=== PATIENT | female | born 1980 | race Caucasian/White ===

== ENCOUNTER 2017-02-04 15:50 | Emergency (ER) | payer MEDICAID ==
[2017-02-04] MEDS ORDERED: Sodium Chloride 0.9% 10 ML Syringe FLUSH PRN (17:08)
--- NOTE | 2017-02-04 17:17 | EDM.PDOC ---
ED HPI LOWER BACK PAIN/INJURY - General Chief Complaint: Back Pain or Injury Stated Complaint: Low back pain Time Seen by Provider: 02/04/17 16:45 Source of Information: Reports: Patient, RN notes reviewed History Limitations: Reports: No limitations - History of Present Illness INITIAL COMMENTS - FREE TEXT/NARRATIVE: 36 year old female presents to the ED today with low back pain radiating down her left leg. This is an ongoing problem for her but has been worse over this past week. In the past, she's been treated with steroids, hydrocodone, and muscle relaxers. She had no recent injury or fall. No flank pain, urinary symptoms, hematuria, or loss of bowel or bladder function. No numbness or tingling. She is ambulating without difficulty. The pain is better with movement. She has been struggling with epigastic discomfort and is scheduled for an EGD. She has been told to avoid NSAIDs for this reason. - Related Data Allergies/ADRs: Allergies Allergy/AdvReac Type Severity Reaction Status Date / Time Penicillins Allergy Hives Verified 02/04/17 16:16 succinylcholine Allergy Anaphylactic Verified 02/04/17 16:16 Shock Home Meds: Home Meds Acetaminophen/HYDROcodone [[place] 325-5 MG] 1 tab PO Q6H PRN #10 tablet 02/04/17 [Rx] Orphenadrine [Norflex] 100 mg PO BID #15 tab.er 02/04/17 [Rx] Pantoprazole Sodium [Protonix] 40 mg PO DAILY 02/04/17 [History] Past Medical History Musculoskeletal History: Reports: Back pain, chronic - Past Surgical History HEENT Surgical History: Reports: Adenoidectomy, Tonsillectomy Neurological Surgical History: Reports: Lumbar spine Social & Family History - Family History Endocrine/Metabolic: Reports: Diabetes, type II - Tobacco Use Smoking Status *Q: Current Every Day Smoker Years of Tobacco use: 22 Packs/Tins Daily: 1 - Caffeine Use Caffeine Use: Reports: Coffee, Soda - Recreational Drug Use Recreational Drug Use: No ED ROS GENERAL - Review of Systems Review Of Systems: See Below Constitutional: Reports: no symptoms. Denies: fever, chills Respiratory: Reports: No Symptoms. Denies: Shortness of Breath Cardiovascular: Reports: No symptoms. Denies: Chest pain GI/Abdominal: Reports: No symptoms. Denies: Abdominal pain, Nausea, Vomiting : Reports: no symptoms. Denies: dysuria, flank pain, frequency, hematuria Musculoskeletal: Reports: back pain Skin: Reports: no symptoms Neurological: Reports: No Symptoms. Denies: Numbness, Tingling, Difficulty Walking, Weakness ED EXAM,LOWER BACK PAIN/INJURY - Physical Exam Exam: See Below Exam Limited By: No limitations General Appearance: alert, WD/WN, moderate distress Respiratory/Chest: no respiratory distress, lungs clear, normal breath sounds Cardiovascular: regular rate, rhythm GI/Abdominal: normal bowel sounds, soft, non tender Back Exam: normal inspection, full range of motion, muscle spasm (low back ), paraspinal tenderness (left lower back ), other (I am able to exacerbate the patient's symptoms with palpation of the left SI joint. ). No: CVA tenderness ( L), CVA tenderness (R), vertebral tenderness Extremities: normal inspection, normal range of motion Neurological: alert, normal mood/affect, normal dorsiflexion, normal plantar flexion, normal gait, no motor/sensory deficits, oriented x 3 Skin Exam: Warm, Dry, Intact Course - Vital Signs Last Recorded V/S: Last Vital Signs Temp 96.6 F 02/04/17 16:08 Pulse Resp 16 02/04/17 16:08 BP 147/99 H 02/04/17 16:08 Pulse Ox 97 02/04/17 16:08 - Orders/Labs/Meds Orders: Active Orders 24 hr Category Date Time Status Peripheral IV Care [RC] . DIRECTED Care 02/04/17 17:09 Active Sodium Chloride 0.9% [Saline Flush] Med 02/04/17 17:08 Active 10 ml FLUSH ASDIRECTED PRN Peripheral IV Insertion Adult [OM.PC] Stat Oth 02/04/17 17:09 Ordered Medication Orders Sodium Chloride (Saline Flush) 10 ml FLUSH ASDIRECTED PRN PRN Reason: Keep Vein Open Meds: Medications Generic Name Dose Route Start Last Admin Trade Name Freq PRN Reason Stop Dose Admin Sodium Chloride 10 ml 02/04/17 17:08 Saline Flush FLUSH ASDIRECTED PRN Keep Vein Open - Re-Assessments/Exams Free Text/Narrative Re-Assessment/Exam: I offered the patient IM injections and also recommended we check her urine. She declined and said she needs to get to work. She would prefer prescriptions and discharge if possible. She has no CVA tenderness or urinary symptoms. Her exam is consistent with musculoskeletal/sciatica etiology. Due to her upper GI symptoms, I am not going to prescribe NSAIDs or prednisone. Will provide prescription for Norflex and Ridge. She is to f/u with her PCP for further evaluation and management. Educated on return precautions. Discharge instructions as documented. Departure - Departure Time of Disposition: 17:15 Disposition: Home, Self-Care 01 Condition: good Clinical Impression: Lumbago with sciatica, left side Qualifiers: Chronicity: acute Back pain laterality: left Qualified Code(s): M54.42 - Lumbago with sciatica, left side Prescriptions: Acetaminophen/HYDROcodone [Ridge 325-5 MG] 1 tab PO Q6H PRN #10 tablet PRN Reason: Pain Orphenadrine [Norflex] 100 mg PO BID #15 tab.er Instructions: Sciatica, [id number] Referrals: Yak[facility] Gaitan [facility] [Primary Care Provider] - Forms: ED Department Discharge Additional Instructions: Orphandrine 100mg twice a day as needed for muscle spasms Hydrocodone/apap 5/325, 1 tab every 6 hours as needed for pain No driving for at least 8 hours after taking Hydrocodone Follow-up with Yakelin Gaitan NP next week Return to ER with worsening of symptoms, fever, chills, urinary symptoms, or loss of bowel or bladder function.
[2017-02-04 18:22] VITALS: BP 133/74
== END 2017-02-04 17:25 | disposition home or self-care (01) ==
LOC: JD.ED 15:50
DX: M54.42 Lumbago with sciatica, left side (principal); F17.210 Nicotine dependence, cigarettes, uncomplicated; Z98.890 Other specified postprocedural states; Z88.0 Allergy status to penicillin; Z88.8 Allergy status to other drugs, medicaments and biological substances; Z79.899 Other long term (current) drug therapy
CPT/HCPCS: 99283

== ENCOUNTER 2017-02-24 13:02 | Day surgery (SDC) | payer MEDICAID ==
--- NOTE | 2017-02-24 06:03 | PCM.SN ---
- Free Text/Narrative Note: Patient did follow up with cardiology for reported chest pain with exertion. Did obtain approval for EGD from Dr. Nieto. Lexiscan stress test recommended by cardiology prior to proceeding with gallbladder surgery. EKG 01/2017: EKG Severity - NORMAL ECG - EKG Impression Sinus rhythm Echo 01/2017: Conclusion: 1. Normal left ventricular size and wall thicknesses, with normal systolic and diastolic function. 2. Left ventricular ejection fraction is 60 to 65%. 3. Normal aortic valve, without any evidence of aortic stenosis or insufficiency. Stress test 01/2017: Indeterminate graded exercise test. Apparent cardiovascular deconditioning. No abnormality on Cardiolite portion. Jesi Smith, TAILER OFF
--- NOTE | 2017-02-24 12:11 | PCM.PREANE ---
Preanesthetic Assessment - Anesthesia/Transfusion/Family Hx Anesthesia History: Prior Anesthesia Reaction Type of Anesthesia Reaction: Other (see below) (cardiac arrest with succinuylcholine noted per h/p2) Family History of Anesthesia Reaction: No Transfusion History: No Prior Transfusion(s) Intubation History: Unknown - Review of Systems General: No Symptoms Pulmonary: No Symptoms (smoker 1 pack/day times 22 years.) Cardiovascular: No Symptoms Gastrointestinal: No symptoms (GERD) Neurological: No Symptoms (acute lower back pain), Numbness (hands and feet fall asleep easily) Other: Reports: Neck Pain (FROM noted) - Physical Assessment NPO Status Date: 02/23/17 NPO Status Time: 00:00 Pulse: 84 O2 Sat by Pulse Oximetry: 96 Respiratory Rate: 16 Blood Pressure: 132/80 Temperature: 96.3 C ASA Class: 2 Mental Status: Alert & Oriented x3 Airway Class: Mallampati = 2 Dentition: Reports: Normal Dentition Thyro-Mental Finger Breadths: 2 Mouth Opening Finger Breadths: 3 ROM/Head Extension: Full Lungs: Clear to auscultation, Normal respiratory effort Cardiovascular: Regular Rate, Regular Rhythm - Lab Values: Lab values noted and reviewed and within normal limits. - Imaging/EKG Impressions: EKG: sinus rhythm - Allergies Allergies/Adverse Reactions: Allergies Allergy/AdvReac Type Severity Reaction Status Date / Time cocaine Allergy Cannot Verified 02/23/17 14:54 Remember Penicillins Allergy Hives Verified 02/23/17 14:54 succinylcholine Allergy Cardiac Verified 02/23/17 14:54 Arrest - Anesthesia Plan Pre-Op Medication Ordered: None - Acknowledgements Anesthesia Type Planned: MAC Pt an Appropriate Candidate for the Planned Anesthesia: Yes Alternatives and Risks of Anesthesia Discussed w Pt/Guardian: Yes Pt/Guardian Understands and Agrees with Anesthesia Plan: Yes PreAnesthesia Questionnaire HEENT History: Reports: None Cardiovascular History: Reports: None, Other (see below) Other Cardiovascular History: exertional chest pain Respiratory History: Reports: None, SOB (pt states SOB with exertion) Gastrointestinal History: Reports: GERD, Other (see below) Other Gastrointestinal History: gallstones, reflux, nausea, diarrhea, RUQ and LUQ abdominal pain Genitourinary History: Reports: None 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: Reports: Endometriosis, Polycystic Ovaries, Other (see below) Other OB/BYN History: amenorrhea Musculoskeletal History: Reports: Back pain, chronic (pt has had back surgery), Other (see below) Other Musculoskeletal History: neck apin, lumar disc herniation at L4-L5 Neurological History: Reports: None Psychiatric History: Reports: None Endocrine/Metabolic History: Reports: Obesity/BMI 30+ Hematologic History: Reports: None Immunologic History: Reports: None Oncologic (Cancer) History: Reports: None Dermatologic History: Other Dermatologic History: acne vulgaris, hidrodenitis, infected skin lesion - Past Surgical History Head Surgeries/Procedures: Reports: None HEENT Surgical History: Reports: Tonsillectomy, Other (see below) Other HEENT Surgeries/Procedures: tympanoplasty Cardiovascular Surgical History: Reports: None Respiratory Surgical History: Reports: None GI Surgical History: Reports: None Female Surgical History: Reports: None, Other (see below) (laparoscopy) Male Surgical History: Reports: None Endocrine Surgical History: Reports: None Neurological Surgical History: Reports: Lumbar spine Musculoskeletal Surgical History: Reports: Other (see below) Other Musculoskeletal Surgeries/Procedures:: laminectomy and discectomy Oncologic Surgical History: Reports: None Dermatological Surgical History: Reports: None - HOME MEDS Home Medications: Home Meds Acetaminophen/HYDROcodone [[place] 325-5 MG] 1 tab PO Q6H PRN #10 tablet 02/04/17 [Rx] Orphenadrine [Norflex] 100 mg PO BID #15 tab.er 02/04/17 [Rx] Pantoprazole Sodium [Protonix] 40 mg PO DAILY 02/04/17 [History] Vitamin C/Biotin [Hair, Skin and Nails Gummies] 1 tab PO DAILY 02/23/17 [History ] - CURRENT (IN HOUSE) MEDS Current Meds: Current Medications Lactated Ringer's (Ringers, Lactated) 1,000 mls @ 125 mls/hr IV ASDIRECTED RUBIA Lidocaine/Sodium Bicarbonate (Buffered Lidocaine 1% In Ns 8.4%) 0.25 ml IV ONETIME PRN PRN Reason: Prior to IV Start Sodium Chloride (Saline Flush) 10 ml FLUSH ASDIRECTED PRN PRN Reason: Keep Vein Open
[~2017-02-24 13:02] MED LIST: Lactated Ringers 1,000 ML IV SCH; Lidocaine 1%/Sod Bicarbonate in NS 8.4% 1 ML Syringe IV PRN; Sodium Chloride 0.9% 10 ML Syringe FLUSH PRN
[2017-02-24] MEDS ORDERED: Lidocaine 1% 4 ML ONE (14:05)
[2017-02-24] MEDS ORDERED: Lidocaine 1% 2 ML ONE (14:05)
[2017-02-24] MEDS ORDERED: fentaNYL 100 MCG/2 ML SDV ONE (14:05)
[2017-02-24] MEDS ORDERED: Propofol 200 MG/20 ML SDV ONE (14:06)
--- NOTE | 2017-02-24 14:48 | PCM.OPNOTE ---
- General Post-Op/Procedure Note Date of Surgery/Procedure: 02/24/17 Operative Procedure(s): Diagnostic EGD with cold forceps biopsy Pre Op Diagnosis: Reflux, heartburn, nausea, right upper quadrant and epigastric tenderness on exam, history of left upper quadrant pain Post-Op Diagnosis: Mild esophagitis Anesthesia Technique: MAC Primary Surgeon: Kendy Landeros Anesthesia Provider: Darshana Zazueta Pathology: 1. Small bowel biopsy 2. Antral biopsy 3. Distal esophageal biopsy Fluid Replacement, Intraop: 300 (mL crystalloid ) EBL in mLs: 1 Complications: None Condition: Good Free Text/Narrative:: INDICATION FOR PROCEDURE: The patient is a 36-year-old woman who is referred to me by MARY Mast for evaluation of heartburn, reflux, epigastric and upper abdominal pain. She also have a history of gallstones. EGD had been discussed with the patient and risks of the associated procedure. The patient found these risks acceptable and agreed to proceed. DESCRIPTION OF PROCEDURE: The patient was taken to the operating room and placed in the left lateral decubitus position. After induction of adequate sedation, a bite block was placed. A standard Olympus gastroscope was inserted into the oropharynx and guided down the esophagus without difficulty. The gastroesophageal junction was appreciated at 39 cm from the teeth. There was no evidence of stricture or esophageal ulcerations. The scope was advanced into the stomach, and there was liquid in the stomach, but no solid food. The scope was passed into the proximal jejunum and the duodenum which were unremarkable. There were no petechiae or ulcerations. The proximal jejunum was grossly normal in appearance. Multiple cold forceps biopsies were obtained of the proximal jejunum and duodenum. The scope was withdrawn into the antrum, and additional cold forceps biopsies were obtained. The remainder of the gastric body was examined, and there were no additional findings. The scope was retroflexed, and there was no evidence of hiatal hernia. The scope was straightened and withdrawn to the GE junction. Additional cold forceps biopsies were obtained of the distal esophagus. The scope was withdrawn through the remainder of the esophagus and no further abnormalities were noted. The posterior oropharynx was grossly normal in appearance. The scope was then fully withdrawn. The patient was awakened from sedation and transferred to the recovery room in stable condition having tolerated the procedure well. POSTOPERATIVE PLAN: I discussed with the patient my intraoperative findings and postoperative recommendations. The patient will follow up in approximately 7-10 days to discuss their pathology and how their symptoms are progressing. The patient is to continue Protonix 40mg daily. I have asked the patient to follow a GERD\gastritis diet. The patient is to call with any worsening of symptoms or questions prior to appointment.
--- NOTE | 2017-02-24 14:48 | PCM48HPAN ---
Post Anesthesia Note - EVALUATION WITHIN 48HRS OF ANESTHETIC Vital Signs in Normal Range: Yes Patient Participated in Evaluation: Yes Respiratory Function Stable: Yes Airway Patent: Yes Cardiovascular Function Stable: Yes Hydration Status Stable: Yes Pain Control Satisfactory: Yes Nausea and Vomiting Control Satisfactory: Yes Mental Status Recovered: Yes
[2017-02-24 15:42] VITALS: BP 124/69
== END 2017-02-24 15:35 | disposition home or self-care (01) ==
LOC: JD.SDS 13:02
PROVIDERS: ATTEND Surgery
PROC: 0DBA8ZX Excision of Jejunum, Via Natural or Artificial Opening Endoscopic, Diagnostic (ICD-10-PCS; principal; 2017-02-24)
PROC: 0DB88ZX Excision of Small Intestine, Via Natural or Artificial Opening Endoscopic, Diagnostic (ICD-10-PCS; 2017-02-24)
DX: K21.0 Gastro-esophageal reflux disease with esophagitis (principal); R10.11 Right upper quadrant pain
CPT/HCPCS: 43239; 81025; 88305; J3010; J7120; J2704

== ENCOUNTER 2017-05-24 22:44 | Emergency (ER) | payer MEDICAID ==
[2017-05-24 22:54] VITALS: BP 143/82
--- NOTE | 2017-05-24 23:26 | EDM.PDOC ---
ED HPI GENERAL MEDICAL PROBLEM - General Chief Complaint: Upper Extremity Injury/Pain Stated Complaint: INJURED RT HAND Time Seen by Provider: 05/24/17 23:25 - History of Present Illness INITIAL COMMENTS - FREE TEXT/NARRATIVE: 37-year-old female presents emergency room with a right forearm and hand pain. This started this evening around 6:00 after arm wrestling with her . Pain is progressively gotten worse over time she had developed intense pain during the arm wrestling and stopped at that point. The pain seems to be worse in the midportion of her hand however she has pain in her forearm also. Right Hand Pain Score (Numeric/FACES): 10 - Related Data Allergies Allergy/AdvReac Type Severity Reaction Status Date / Time cocaine Allergy Cannot Verified 05/24/17 22:54 Remember Penicillins Allergy Hives Verified 05/24/17 22:54 succinylcholine Allergy Cardiac Verified 05/24/17 22:54 Arrest Home Meds: Home Meds Pantoprazole Sodium [Protonix] 40 mg PO DAILY 02/04/17 [History] Vitamin C/Biotin [Hair, Skin and Nails Gummies] 1 tab PO DAILY 02/23/17 [History ] Past Medical History HEENT History: Reports: None Cardiovascular History: Reports: None, Other (See Below) Other Cardiovascular History: exertional chest pain Respiratory History: Reports: None, SOB Gastrointestinal History: Reports: GERD, Other (See Below) Other Gastrointestinal History: gallstones, reflux, nausea, diarrhea, RUQ and LUQ abdominal pain Genitourinary History: Reports: None 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: Reports: Endometriosis, Polycystic Ovaries, Other (See Below) Other OB/BYN History: amenorrhea Musculoskeletal History: Reports: Back Pain, Chronic, Other (See Below) Other Musculoskeletal History: neck apin, lumar disc herniation at L4-L5 Neurological History: Reports: None Psychiatric History: Reports: None Endocrine/Metabolic History: Reports: Obesity/BMI 30+ Hematologic History: Reports: None Immunologic History: Reports: None Oncologic (Cancer) History: Reports: None Other Dermatologic History: acne vulgaris, hidrodenitis, infected skin lesion - Past Surgical History Head Surgeries/Procedures: Reports: None HEENT Surgical History: Reports: Tonsillectomy, Other (See Below) Respiratory Surgical History: Reports: None Female Surgical History: Reports: None, Other (See Below) Endocrine Surgical History: Reports: None Neurological Surgical History: Reports: Lumbar Spine Musculoskeletal Surgical History: Reports: Other (See Below) Oncologic Surgical History: Reports: None Dermatological Surgical History: Reports: None Social & Family History - Family History Endocrine/Metabolic: Reports: Diabetes, type II - Tobacco Use Smoking Status *Q: Unknown Ever Smoked Years of Tobacco use: 22 Packs/Tins Daily: 1 - Caffeine Use Caffeine Use: Reports: Coffee, Soda - Recreational Drug Use Recreational Drug Use: No Review of Systems - Review of Systems Review Of Systems: See Below Constitutional: Reports: No Symptoms Respiratory: Reports: No Symptoms Cardiovascular: Reports: No Symptoms GI/Abdominal: Reports: No Symptoms ED EXAM, GENERAL - Physical Exam Exam: See Below Exam Limited By: No Limitations General Appearance: Alert, No Apparent Distress Respiratory/Chest: No Respiratory Distress, Lungs Clear, Normal Breath Sounds Cardiovascular: Regular Rate, Rhythm, No Edema, No Murmur Extremities: Other (Examination of the right arm reveals tenderness over the hand this is somewhat hard to move because of tenderness I cannot adequately assess range of motion at the wrist and digits supination pronation somewhat limited by discomfort range of motion of the elbows okay) Course - Vital Signs Last Recorded V/S: Last Vital Signs Temp 36.7 C 05/24/17 22:51 Pulse 82 05/24/17 22:51 Resp 18 05/24/17 22:51 BP 143/82 H 05/24/17 22:51 Pulse Ox 98 05/24/17 22:51 - Orders/Labs/Meds Orders: Active Orders 24 hr Category Date Time Status Forearm 2V Rt [CR] Stat Exams 05/24/17 23:34 Taken Hand Comp Min 3V Rt [CR] Stat Exams 05/24/17 22:58 Taken - Re-Assessments/Exams Free Text/Narrative Re-Assessment/Exam: 05/24/17 23:39 X-ray of the hand is unrevealing forearm pending forearm x-rays unrevealing patient had a volar splint applied and this is helping with the discomfort. We will discharge home at this time Departure - Departure Time of Disposition: 00:53 Disposition: Home, Self-Care 01 Clinical Impression: Sprain of right hand, Sprain of right wrist - Discharge Information Forms: ED Department Discharge Additional Instructions: Return to the emergency room with any questions problems or worsening symptoms. Follow up in the clinic with your regular provider on for recheck. Tylenol or Motrin as needed for discomfort. Keep your hand elevated as much as she can tolerate ice your wrist for 15-20 minutes every 2 hours while awake. - My Orders Last 24 Hours: My Active Orders 05/24/17 22:58 Hand Comp Min 3V Rt [CR] Stat 05/24/17 23:34 Forearm 2V Rt [CR] Stat - Assessment/Plan Last 24 Hours: My Active Orders 05/24/17 22:58 Hand Comp Min 3V Rt [CR] Stat 05/24/17 23:34 Forearm 2V Rt [CR] Stat
--- NOTE | 2017-05-25 07:37 | CR ---
Right forearm: Two views of the right forearm were obtained. Soft tissue swelling is seen within the forearm. No fracture or other bony abnormality is seen. Impression: 1. Soft tissue swelling. No bony abnormality is identified on right forearm study. Diagnostic code #2
--- NOTE | 2017-05-25 07:37 | CR ---
Right hand: Four views of the right hand were obtained. Comparison: No previous hand study. Joint spaces are preserved. Soft tissue swelling appears to be present mostly within the second digit. No acute fracture, dislocation or other bony abnormality is seen. Impression: 1. Soft tissue swelling appears to be present mostly within the right second digit. 2. No acute bony abnormality is appreciated. Diagnostic code #2
== END 2017-05-25 01:03 | disposition home or self-care (01) ==
LOC: JD.ED 22:44
DX: S63.91XA Sprain of unspecified part of right wrist and hand, initial encounter (principal); K21.9 Gastro-esophageal reflux disease without esophagitis; E66.9 Obesity, unspecified; Z88.0 Allergy status to penicillin; Z88.5 Allergy status to narcotic agent; Z79.899 Other long term (current) drug therapy; Z98.890 Other specified postprocedural states; X58.XXXA Exposure to other specified factors, initial encounter
CPT/HCPCS: 29125; 73090-26-RT; 73090-RT; 73130-26-RT; 73130-RT; 99283; 99283-25

== ENCOUNTER 2017-07-09 01:41 | Emergency (ER) | payer MEDICAID ==
[2017-07-09 01:56] VITALS: BP 148/97
[2017-07-09] MEDS ORDERED: Albuterol 6.7 GM Inhaler INH ONE (02:00)
--- NOTE | 2017-07-09 02:04 | EDM.PDOC ---
ED HPI GENERAL MEDICAL PROBLEM - General Chief Complaint: Respiratory Problem Stated Complaint: SOB COUGH Time Seen by Provider: 07/09/17 01:56 - History of Present Illness INITIAL COMMENTS - FREE TEXT/NARRATIVE: 37-year-old female presents emergency room with a worsening cough. Patient was seen in the clinic on Wednesday diagnosed with bronchitis started on doxycycline. She thought she had an albuterol inhaler at home but apparently does not. Now the cough is keeping her up at night. She's had this cough for about 10 days and is progressively getting worse the cough is becoming more productive with clear to off-colored sputum. She denies any fevers or chills Past medical history significant for polycystic ovarian disease denies . Chest Pain Score (Numeric/FACES): 5 - Related Data Allergies Allergy/AdvReac Type Severity Reaction Status Date / Time cocaine Allergy Cannot Verified 07/09/17 01:56 Remember Penicillins Allergy Hives Verified 07/09/17 01:56 succinylcholine Allergy Cardiac Verified 07/09/17 01:56 Arrest Home Meds: Home Meds Pantoprazole Sodium [Protonix] 40 mg PO DAILY 02/04/17 [History] Vitamin C/Biotin [Hair, Skin and Nails Gummies] 1 tab PO DAILY 02/23/17 [History ] predniSONE [predniSONE] 20 mg PO DAILY 07/09/17 [History] Past Medical History HEENT History: Reports: None Cardiovascular History: Reports: None, Other (See Below) Other Cardiovascular History: exertional chest pain Respiratory History: Reports: None, SOB Gastrointestinal History: Reports: GERD, Other (See Below) Other Gastrointestinal History: gallstones, reflux, nausea, diarrhea, RUQ and LUQ abdominal pain Genitourinary History: Reports: None 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: Reports: Endometriosis, Polycystic Ovaries, Other (See Below) Other OB/BYN History: amenorrhea Musculoskeletal History: Reports: Back Pain, Chronic, Other (See Below) Other Musculoskeletal History: neck apin, lumar disc herniation at L4-L5 Neurological History: Reports: None Psychiatric History: Reports: None Endocrine/Metabolic History: Reports: Obesity/BMI 30+ Hematologic History: Reports: None Immunologic History: Reports: None Oncologic (Cancer) History: Reports: None Other Dermatologic History: acne vulgaris, hidrodenitis, infected skin lesion - Past Surgical History Head Surgeries/Procedures: Reports: None HEENT Surgical History: Reports: Tonsillectomy, Other (See Below) Respiratory Surgical History: Reports: None Female Surgical History: Reports: None, Other (See Below) Endocrine Surgical History: Reports: None Neurological Surgical History: Reports: Lumbar Spine Musculoskeletal Surgical History: Reports: Other (See Below) Oncologic Surgical History: Reports: None Dermatological Surgical History: Reports: None Social & Family History - Family History Endocrine/Metabolic: Reports: Diabetes, type II - Tobacco Use Smoking Status *Q: Unknown Ever Smoked Years of Tobacco use: 22 Packs/Tins Daily: 1 - Caffeine Use Caffeine Use: Reports: Coffee, Soda - Recreational Drug Use Recreational Drug Use: No ED ROS GENERAL - Review of Systems Review Of Systems: See Below Constitutional: Denies: Fever, Chills HEENT: Reports: No Symptoms Respiratory: Reports: Cough, Sputum. Denies: Wheezing Cardiovascular: Reports: No Symptoms. Denies: Chest Pain GI/Abdominal: Reports: No Symptoms : Reports: No Symptoms Neurological: Reports: No Symptoms ED EXAM, GENERAL - Physical Exam Exam: See Below Exam Limited By: No Limitations General Appearance: Alert, No Apparent Distress, Other (She has a frequent cough ) Ears: Normal External Exam, Normal Canal, Normal TMs Nose: Normal Inspection, Normal Mucosa, Clear Rhinorrhea Throat/Mouth: Normal Inspection, Normal Lips, Normal Teeth, Normal Gums, Normal Oropharynx Head: Atraumatic, Normocephalic Neck: Normal Inspection, Supple, Non-Tender, Full Range of Motion. No: Lymphadenopathy (L), Lymphadenopathy (R) Respiratory/Chest: No Respiratory Distress, Lungs Clear, Normal Breath Sounds Cardiovascular: Regular Rate, Rhythm, No Edema, No Murmur Course - Vital Signs Last Recorded V/S: Last Vital Signs Temp 36.4 C 07/09/17 01:53 Pulse 99 07/09/17 01:53 Resp 18 07/09/17 01:53 BP 148/97 H 07/09/17 01:53 Pulse Ox 92 L 07/09/17 02:22 - Orders/Labs/Meds Orders: Active Orders 24 hr Category Date Time Status Chest 2V [CR] Stat Exams 07/09/17 02:01 Taken Meds: Medications Discontinued Medications Generic Name Dose Route Start Last Admin Trade Name Freq PRN Reason Stop Dose Admin Albuterol 6.5 gm 07/09/17 02:00 07/09/17 02:21 Proventil Hfa INH 07/09/17 02:01 2 puff ONETIME ONE Administration - Re-Assessments/Exams Free Text/Narrative Re-Assessment/Exam: 07/09/17 02:15 We'll start the patient on albuterol MDI see if this helps her O2 saturation is 89% we'll check a chest x-ray. 07/09/17 02:53 O2 saturation 93% chest x-ray no obvious infiltrate questionable area in her left lower lobe. Patient was started on albuterol MDI this helps significantly. Departure - Departure Time of Disposition: 02:53 Disposition: Home, Self-Care 01 Clinical Impression: Acute bronchitis - Discharge Information Referrals: Yakelin Gaitan, ELECT[employer] MICROSCOPIST [Primary Care Provider] - Forms: ED Department Discharge Additional Instructions: Return to the emergency room with any questions problems worsening symptoms. Use the albuterol 2 puffs every 4 hours while awake. Follow-up in the clinic tomorrow if needed. - My Orders Last 24 Hours: My Active Orders 07/09/17 02:01 Chest 2V [CR] Stat - Assessment/Plan Last 24 Hours: My Active Orders 07/09/17 02:01 Chest 2V [CR] Stat
--- NOTE | 2017-07-09 13:17 | CR ---
Chest: Two views of the chest were obtained. Comparison: No prior chest x-ray. Perihilar markings are slightly increased. Slight focal density is seen of the left cardiac apex. Lungs otherwise are clear. Heart size and mediastinum are within normal limits. Bony structures are unremarkable. Impression: 1. Perihilar markings are slightly increased which is felt to be compatible with bronchitis. Possible minimal area of pneumonia versus atelectasis of the left cardiac apex. 2. Chest x-ray is otherwise unremarkable. Diagnostic code #3
== END 2017-07-09 03:13 | disposition home or self-care (01) ==
LOC: JD.ED 01:41
DX: J20.9 Acute bronchitis, unspecified (principal); K21.9 Gastro-esophageal reflux disease without esophagitis; E66.9 Obesity, unspecified; Z88.5 Allergy status to narcotic agent; Z88.0 Allergy status to penicillin; Z88.2 Allergy status to sulfonamides; Z79.899 Other long term (current) drug therapy; Z68.42 Body mass index [BMI] 45.0-49.9, adult
CPT/HCPCS: 71020; 94640; 99284; A9270; 99283

== ENCOUNTER 2017-07-10 11:35 | Inpatient (IN) | payer MEDICAID ==
[2017-07-10] MEDS ORDERED: Albuterol 0.083% 2.5 MG/3 ML Neb Soln NEB ONE (11:48)
[2017-07-10] MEDS ORDERED: Albuterol/Ipratropium 3.0-0.5 MG/3 ML Neb Soln NEB ONE ×2 (11:48→12:52)
--- NOTE | 2017-07-10 12:21 | EDM.PDOC ---
ED HPI GENERAL MEDICAL PROBLEM - General Chief Complaint: Respiratory Problem Stated Complaint: COUGH/SOB Time Seen by Provider: 07/10/17 11:52 Source of Information: Reports: Patient History Limitations: Reports: No Limitations - History of Present Illness INITIAL COMMENTS - FREE TEXT/NARRATIVE: Patient is a 37-year-old female who presents to the ED complaining of productive cough, wheezing, and shortness of breath. Patient was recently diagnosed with bronchitis this past Wednesday and started on doxycycline. She was evaluated last night in the ED and a chest x-ray obtained with no obvious infiltrate present. Questional area in the left lower lobe that maybe early onset of pneumonia. O2 sats at that time were 93%. She had received albuterol with MDI which improved her symptoms drastically. On returning home patient's been utilizing albuterol inhaler every hour with minimal improvements. She is taking prednisone 20 mg daily since the . Symptoms have been present for the past 10 days. It progressed to got worse. She is denying any sinus congestion, runny nose, sore throat, fever/chills, chest pain, abdominal pain, pain with urination, or additional complaints. There's been no rash. No recent sick exposures. She does have a history of admission to the hospital for pneumonia. Smokes 1 ppd.Does not take BCP. Denies being . Treatments SOCIAL AND HUMAN SERVICES ASSISTANT: Reports: Other (see below) Other Treatments SOCIAL AND HUMAN SERVICES ASSISTANT: albuterol inhaler. Back Pain Score (Numeric/FACES): 3 Headache Pain Score (Numeric/FACES): 0 - Related Data Allergies Allergy/AdvReac Type Severity Reaction Status Date / Time cocaine Allergy Cannot Verified 07/10/17 14:33 Remember Penicillins Allergy Hives Verified 07/10/17 14:33 succinylcholine Allergy Cardiac Verified 07/10/17 14:33 Arrest Home Meds: Home Meds Pantoprazole Sodium [Protonix] 40 mg PO DAILY 02/04/17 [History] Vitamin C/Biotin [Hair, Skin and Nails Gummies] 1 tab PO DAILY 02/23/17 [History ] predniSONE [predniSONE] 20 mg PO DAILY 07/09/17 [History] Past Medical History HEENT History: Reports: None Cardiovascular History: Reports: None, Other (See Below) Other Cardiovascular History: exertional chest pain Respiratory History: Reports: None, SOB Gastrointestinal History: Reports: GERD, Other (See Below) Other Gastrointestinal History: gallstones, reflux, nausea, diarrhea, RUQ and LUQ abdominal pain Genitourinary History: Reports: None 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 History: Reports: Endometriosis, Polycystic Ovaries, Other (See Below) Other OB/BYN History: amenorrhea Musculoskeletal History: Reports: Back Pain, Chronic, Other (See Below) Other Musculoskeletal History: neck apin, lumar disc herniation at L4-L5 Neurological History: Reports: None Psychiatric History: Reports: None Endocrine/Metabolic History: Reports: Obesity/BMI 30+ Hematologic History: Reports: None Immunologic History: Reports: None Oncologic (Cancer) History: Reports: None Other Dermatologic History: acne vulgaris, hidrodenitis, infected skin lesion - Past Surgical History Head Surgeries/Procedures: Reports: None HEENT Surgical History: Reports: Tonsillectomy, Other (See Below) Respiratory Surgical History: Reports: None Female Surgical History: Reports: None, Other (See Below) Endocrine Surgical History: Reports: None Neurological Surgical History: Reports: Lumbar Spine Musculoskeletal Surgical History: Reports: Other (See Below) Oncologic Surgical History: Reports: None Dermatological Surgical History: Reports: None Social & Family History - Family History Endocrine/Metabolic: Reports: Diabetes, type II - Tobacco Use Smoking Status *Q: Current Every Day Smoker Years of Tobacco use: 15 Packs/Tins Daily: 0.5 - Caffeine Use Caffeine Use: Reports: Coffee, Soda - Recreational Drug Use Recreational Drug Use: No ED ROS GENERAL - Review of Systems Review Of Systems: See Below Constitutional: Denies: Fever, Chills, Decreased Appetite HEENT: Denies: Ear Pain, Rhinitis, Sinus Problem, Throat Pain Respiratory: Reports: Shortness of Breath, Wheezing, Cough, Sputum. Denies: Pleuritic Chest Pain, Hemoptysis Cardiovascular: Reports: Dyspnea on Exertion. Denies: Chest Pain, Palpitations , Syncope GI/Abdominal: Denies: Abdominal Pain, Nausea, Vomiting : Denies: Dysuria Musculoskeletal: Reports: No Symptoms Skin: Denies: Rash Neurological: Denies: Dizziness, Headache ED EXAM, GENERAL - Physical Exam Exam: See Below Exam Limited By: No Limitations General Appearance: Alert, WD/WN, Mild Distress (Coughing) Eye Exam: Bilateral Eye: PERRL Ears: Normal External Exam, Normal Canal, Hearing Grossly Normal, Normal TMs Nose: Normal Inspection, Normal Mucosa, No Blood Throat/Mouth: Normal Inspection, Normal Voice, No Airway Compromise Neck: Normal Inspection, Supple, Non-Tender. No: Lymphadenopathy (L), Lymphadenopathy (R) Respiratory/Chest: No Accessory Muscle Use, Wheezing (Expiratory wheezes throughout with intermittent rhonchi in left lower lobe. Cleared with coughing.) . No: No Respiratory Distress, Retractions, Splinting Cardiovascular: Normal Peripheral Pulses, Regular Rate, Rhythm, No Murmur Peripheral Pulses: 2+: Radial (L) GI/Abdominal: Normal Bowel Sounds, Soft, Non-Tender, No Organomegaly, No Distention Extremities: Normal Inspection Neurological: Alert, Oriented, CN II-XII Intact, Normal Cognition, No Motor/ Sensory Deficits Psychiatric: Normal Affect, Normal Mood Skin Exam: Warm, Dry, Intact, Normal Color Course - Vital Signs Last Recorded V/S: Last Vital Signs Temp 97.3 F 07/11/17 20:03 Pulse 80 07/11/17 20:03 Resp 18 07/11/17 20:03 BP 120/53 L 07/11/17 20:03 Pulse Ox 96 07/11/17 20:21 - Orders/Labs/Meds Orders: Medication Orders Acetaminophen (Tylenol) 650 mg PO Q4H PRN PRN Reason: Pain (Mild 1-3)/fever Acetaminophen/Butalbital/Caffeine (Fioricet 325-50-40 Mg) 1 tab PO Q6H PRN PRN Reason: Headache Last Admin: 07/11/17 15:13 Dose: 1 tab Hydrocodone Bitart/Acetaminophen ([place] 325-5 Mg) 1 tab PO Q4H PRN PRN Reason: Pain (moderate 4-6) Albuterol/Ipratropium (Duoneb 3.0-0.5 Mg/3 Ml) 3 ml NEB Q4H PRN PRN Reason: Shortness Of Breath/wheezing Last Admin: 07/11/17 20:21 Dose: 3 ml Admin: 07/11/17 09:46 Dose: 3 ml Admin: 07/11/17 04:41 Dose: 3 ml Admin: 07/10/17 21:54 Dose: 3 ml Admin: 07/10/17 17:59 Dose: 3 ml Bisacodyl (Dulcolax) 5 mg PO DAILY PRN PRN Reason: Constipation Bumetanide (Bumex) 1 mg PO BIDDIURETIC [facility] Docusate Sodium (Colace) 100 mg PO BID PRN PRN Reason: Constipation Enoxaparin Sodium (Lovenox) 40 mg SUBCUT BID [facility] Last Admin: 07/11/17 20:08 Dose: 40 mg Admin: 07/11/17 08:39 Dose: 40 mg Admin: 07/10/17 21:19 Dose: 40 mg Guaifenesin (Mucinex) 1,200 mg PO BID [facility] Last Admin: 07/11/17 20:07 Dose: 1,200 mg Hydralazine HCl (Apresoline) 20 mg IVPUSH Q4H PRN PRN Reason: Hypertension Levofloxacin/Dextrose 750 mg/ (Premix) 150 mls @ 100 mls/hr IV Q24H [facility] Last Admin: 07/11/17 17:21 Dose: 100 mls/hr Promethazine HCl 12.5 mg/ (Sodium Chloride) 50.5 mls @ 100 mls/hr IV Q6H PRN PRN Reason: Nausea/Vomiting Lorazepam (Ativan) 2 mg IVPUSH Q4H PRN PRN Reason: Seizures Lorazepam (Ativan) 1 mg IV Q6H PRN PRN Reason: Anxiety Magnesium Oxide (Magnesium Oxide) 400 mg PO BID [facility] Last Admin: 07/11/17 20:07 Dose: 400 mg Admin: 07/11/17 08:39 Dose: 400 mg Admin: 07/10/17 21:19 Dose: 400 mg Magnesium Sulfate (Pharmacy To Dose - Magnesium Replacement) 1 dose .XX ASDIRECTED [facility] Methylprednisolone Sodium Succinate (Solu-Medrol) 125 mg IVPUSH Q8H [facility] Last Admin: 07/11/17 15:14 Dose: 125 mg Admin: 07/11/17 08:33 Dose: Admin: 07/11/17 06:22 Dose: 125 mg Admin: 07/10/17 23:33 Dose: 125 mg Admin: 07/10/17 17:09 Dose: 125 mg Metoprolol Tartrate (Lopressor) 5 mg IVPUSH Q4H PRN PRN Reason: Tachycardia Ondansetron HCl (Zofran) 4 mg IV Q6H PRN PRN Reason: Nausea/Vomiting Last Admin: 07/10/17 17:42 Dose: 4 mg Polyethylene Glycol (Miralax) 17 gm PO DAILY PRN PRN Reason: Constipation Potassium Chloride (Pharmacy To Dose - Potassium Replacement) 1 dose .XX ASDIRECTED [facility] Senna/Docusate Sodium (Senna Plus) 1 tab PO BID PRN PRN Reason: Constipation Sodium Chloride (Saline Flush) 10 ml FLUSH ASDIRECTED PRN PRN Reason: Keep Vein Open Last Admin: 07/10/17 13:17 Dose: 10 ml Temazepam (Restoril) 30 mg PO BEDTIME PRN PRN Reason: Sleep Last Admin: 07/10/17 21:20 Dose: 30 mg Meds: Medications Generic Name Dose Route Start Last Admin Trade Name Freq PRN Reason Stop Dose Admin Acetaminophen 650 mg 07/10/17 14:29 Tylenol PO Q4H PRN Pain (Mild 1-3)/fever Acetaminophen/Butalbital/Caffeine 1 tab 07/11/17 15:10 07/11/17 15:13 Fioricet 325-50-40 Mg PO 1 tab Q6H PRN Administration Headache Hydrocodone Bitart/Acetaminophen 1 tab 07/10/17 14:29 [place] 325-5 Mg PO Q4H PRN Pain (moderate 4-6) Albuterol/Ipratropium 3 ml 07/10/17 14:29 07/11/17 20:21 Duoneb 3.0-0.5 Mg/3 Ml NEB 3 ml Q4H PRN Administration Shortness Of Breath/wheezing Bisacodyl 5 mg 07/10/17 14:29 Dulcolax PO DAILY PRN Constipation Bumetanide 1 mg 07/12/17 09:00 Bumex PO BIDDIURETIC [facility] Docusate Sodium 100 mg 07/10/17 14:29 Colace PO BID PRN Constipation Enoxaparin Sodium 40 mg 07/10/17 21:00 07/11/17 20:08 Lovenox SUBCUT 40 mg BID [facility] Administration Guaifenesin 1,200 mg 07/11/17 21:00 07/11/17 20:07 Mucinex PO 1,200 mg BID [facility] Administration Hydralazine HCl 20 mg 07/10/17 14:27 Apresoline IVPUSH Q4H PRN Hypertension Levofloxacin/Dextrose 750 mg/ 150 mls @ 100 mls/hr 07/11/17 18:00 07/11/17 17 :21 Premix IV 100 mls/hr Q24H [facility] Administration Promethazine HCl 12.5 mg/ 50.5 mls @ 100 mls/hr 07/10/17 14:29 Sodium Chloride IV Q6H PRN Nausea/Vomiting Lorazepam 2 mg 07/10/17 14:27 Ativan IVPUSH Q4H PRN Seizures Lorazepam 1 mg 07/10/17 14:29 Ativan IV Q6H PRN Anxiety Magnesium Oxide 400 mg 07/10/17 21:00 07/11/17 20:07 Magnesium Oxide PO 400 mg BID [facility] Administration Magnesium Sulfate 1 dose 07/10/17 14:30 Pharmacy To Dose - Magnesium Replacement .XX ASDIRECTED [facility] Methylprednisolone Sodium Succinate 125 mg 07/10/17 15:30 07/11/17 15:14 Solu-Medrol IVPUSH 125 mg Q8H [facility] Administration Metoprolol Tartrate 5 mg 07/10/17 14:27 Lopressor IVPUSH Q4H PRN Tachycardia Ondansetron HCl 4 mg 07/10/17 14:29 07/10/17 17:42 Zofran IV 4 mg Q6H PRN Administration Nausea/Vomiting Polyethylene Glycol 17 gm 07/10/17 14:29 Miralax PO DAILY PRN Constipation Potassium Chloride 1 dose 07/10/17 14:30 Pharmacy To Dose - Potassium Replacement .XX ASDIRECTED [facility] Senna/Docusate Sodium 1 tab 07/10/17 14:29 Senna Plus PO BID PRN Constipation Sodium Chloride 10 ml 07/10/17 12:51 07/10/17 13:17 Saline Flush FLUSH 10 ml ASDIRECTED PRN Administration Keep Vein Open Temazepam 30 mg 07/10/17 14:29 07/10/17 21:20 Restoril PO 30 mg BEDTIME PRN Administration Sleep Discontinued Medications Generic Name Dose Route Start Last Admin Trade Name Freq PRN Reason Stop Dose Admin Albuterol 2.5 mg 07/10/17 11:48 07/10/17 12:04 Proventil Neb Soln NEB 07/10/17 11:49 2.5 mg ONETIME ONE Administration Albuterol/Ipratropium 3 ml 07/10/17 11:48 07/10/17 12:04 Duoneb 3.0-0.5 Mg/3 Ml NEB 07/10/17 11:49 3 ml ONETIME ONE Administration Albuterol/Ipratropium 3 ml 07/10/17 12:52 07/10/17 13:05 Duoneb 3.0-0.5 Mg/3 Ml NEB 07/10/17 12:53 3 ml ONETIME ONE Administration Bumetanide 1 mg 07/10/17 22:36 07/10/17 23:33 Bumex IVPUSH 07/10/17 22:37 1 mg ONETIME ONE Administration Bumetanide 1 mg 07/11/17 06:11 07/11/17 06:33 Bumex IVPUSH 07/11/17 06:12 1 mg ONETIME ONE Administration Bumetanide 1 mg 07/11/17 18:00 07/11/17 18:52 Bumex IVPUSH 07/11/17 18:01 1 mg ONETIME ONE Administration Guaifenesin 1,200 mg 07/10/17 13:44 07/10/17 13:58 Mucinex PO 07/10/17 13:45 1,200 mg ONETIME ONE Administration Guaifenesin 1,200 mg 07/11/17 09:12 07/11/17 09:40 Mucinex PO 07/11/17 09:13 1,200 mg ONETIME ONE Administration Magnesium Sulfate 2 gm/ Premix 50 mls @ 50 mls/hr 07/10/17 12:51 07/10/17 13: 13 IV 07/10/17 13:50 50 mls/hr ONETIME ONE Administration Sodium Chloride 1,000 mls @ 75 mls/hr 07/10/17 13:45 07/11/17 02:33 Normal Saline IV 75 mls/hr ASDIRECTED [facility] Administration Levofloxacin/Dextrose 750 mg/ 150 mls @ 100 mls/hr 07/10/17 14:20 07/10/17 17 :12 Premix IV 07/10/17 15:49 100 mls/hr ONETIME ONE Administration Levalbuterol HCl 1.25 mg 07/10/17 12:53 07/10/17 13:09 Xopenex NEB 07/10/17 12:54 1.25 mg ONETIME ONE Administration Morphine Sulfate 2 mg 07/10/17 14:29 07/11/17 06:22 Morphine IVPUSH 07/11/17 14:30 2 mg Q4H PRN Administration Other Morphine Sulfate 1 mg 07/11/17 09:10 07/11/17 09:52 Morphine IVPUSH 07/11/17 09:11 1 mg ONETIME ONE Administration Prednisone 20 mg 07/10/17 12:51 07/10/17 13:16 Prednisone PO 07/10/17 12:52 20 mg ONETIME ONE Administration - Re-Assessments/Exams Free Text/Narrative Re-Assessment/Exam: Reviewed previous ED visit, Course of treatment, and also chest x-ray. Examination revealed expiratory wheezing throughout with intermittent rhonchi to the left lower lobe cleared with coughing. Patient's O2 sats were 89% with coughing. She is placed on 2 L/m of O2 which brought him up to 92%. Ordered albuterol neb treatment and then will utilize a DuoNeb thereafter. She is already on doxycycline and also prednisone. Prednisone started yesterday and may take a couple days worth to kick incompletely. 07/10/17 12:53 patient states symptoms are improving. She continues to cough. O2 sats are 91% on 2 L via nasal cannula O2. Ordered magnesium 2 g to be pushed over 15 minutes, DuoNeb 1, and Xopenex 1. 07/10/17 13:45 Reassessment, patient's coughing has improved. O2 sats remains 91 % on 2 L/m of O2. Without O2 patient's O2 sats dropped to 87% patient comes more short of breath. Discussed with patient about admission to the hospital for further treatment for pneumonia. Patient agrees into doing so. Ordered basic labs including CBC, chem 14, CRP. As well ordered mycoplasma and also calcitonin. MCG will be placed. Will contact Dr. Marshall and speak with him about admission. 07/10/17 14:[address] Marshall quantitative consultant hospitalist. He has agreed to admit the patient inpatient [facility] with telemetry. Requested Levaquin 750 mg IV be started. Departure - Departure Time of Disposition: 14:21 Disposition: Admitted As Inpatient 67 Condition: Fair Clinical Impression: Hypoxia Pneumonia Qualifiers: Pneumonia type: due to unspecified organism Laterality: left Lung location: lower lobe of lung Qualified Code(s): J18.1 - Lobar pneumonia, unspecified organism - Discharge Information
[2017-07-10] MEDS ORDERED: Magnesium Sulfate/Water 2 GM in Premix Bag 1 BAG IV ONE (12:51)
[2017-07-10] MEDS ORDERED: predniSONE 20 MG Tab PO ONE (12:51)
[2017-07-10] MEDS ORDERED: Levalbuterol HCl 1.25 MG/0.5 ML Neb NEB ONE (12:53)
[2017-07-10] MEDS: Sodium Chloride 0.9% 10 ML Syringe FLUSH PRN (13:17)
[2017-07-10] MEDS ORDERED: guaiFENesin 600 MG Tab.ER PO ONE (13:44)
[2017-07-10] MEDS: Sodium Chloride 0.9% 1,000 ML IV SCH (14:01)
[2017-07-10] MEDS ORDERED: Levofloxacin/Dextrose 5%-Water 750 MG in Premix Bag 1 BAG IV ONE (14:20)
[2017-07-10] MEDS ORDERED: hydrALAZINE 20 MG/ML SDV IVPUSH PRN (14:27)
[2017-07-10] MEDS ORDERED: LORazepam 2 MG/ML MDV IVPUSH PRN (14:27)
[2017-07-10] MEDS ORDERED: Metoprolol Tartrate 5 MG/5 ML SDV IVPUSH PRN (14:27)
--- NOTE | 2017-07-10 14:27 | PCM.HP ---
H&P History of Present Illness - General Date of Service: 07/10/17 Admit Problem/Dx: Dyspnea/SOB Source of Information: Patient, Old Records, Provider, RN Notes Reviewed History Limitations: Reports: Respiratory Distress - History of Present Illness Initial Comments - Free Text/Narative: This is a 37 year old female with past medical history of GERD, cholelithiasis, endometriosis, PCOS, chronic back and neck pain, lumbar disc herniation at L4-L5, hydradenitis suppurativa, and morbid obesity with BMI greater than 40 who comes in with complaints of worsening shortness of breath associated with productive, and wheezing. Patient was recently diagnosed with bronchitis this past Wednesday and was put on doxycycline, handheld inhalers and oral steroid. She was evaluated last night in the emergency department for similar symptoms. Her initial chest x-ray showed no obvious infiltrate. Her symptoms have been going on for the past 10 days. She denies any upper respiratory infection. No sinus or headaches. She further denies any signs of systemic infection. No sick contact. Her initial workup in emergency department shows a CBC remarkable for WBC of 19.73, neutrophils of 83.9%, lymphocytes of 11.2%, monocytes of 4.0%, and eosinophils of 0.1%. ABG shows pH of 7.42, PCO2 of 35.8, PO2 of 121.8, bicarbonate of 22.5, O2 sat of 98.3% on 2 L nasal cannula. Her chemistry is remarkable for glucose of 134, CRP of 4.5. Her screening is negative. Patient received initial treatment in the emergency department before she was sent to the floor for further treatment. She is being admitted for acute bronchitis. She is full code. Back Pain Score (Numeric/FACES): 3 - Related Data Allergies/Adverse Reactions: Allergies Allergy/AdvReac Type Severity Reaction Status Date / Time cocaine Allergy Cannot Verified 07/10/17 14:33 Remember Penicillins Allergy Hives Verified 07/10/17 14:33 succinylcholine Allergy Cardiac Verified 07/10/17 14:33 Arrest Home Medications: Home Meds Pantoprazole Sodium [Protonix] 40 mg PO DAILY 02/04/17 [History] Vitamin C/Biotin [Hair, Skin and Nails Gummies] 1 tab PO DAILY 02/23/17 [History ] predniSONE [predniSONE] 20 mg PO DAILY 07/09/17 [History] Past Medical History HEENT History: Reports: None Cardiovascular History: Reports: None, Other (See Below) Other Cardiovascular History: exertional chest pain Respiratory History: Reports: None, SOB Gastrointestinal History: Reports: GERD, Other (See Below) Other Gastrointestinal History: gallstones, reflux, nausea, diarrhea, RUQ and LUQ abdominal pain Genitourinary History: Reports: None [employer]ER History: Reports: Endometriosis, Polycystic Ovaries, Other (See Below) Other OB/BYN History: amenorrhea Musculoskeletal History: Reports: Back Pain, Chronic, Other (See Below) Other Musculoskeletal History: neck apin, lumar disc herniation at L4-L5 Neurological History: Reports: None Psychiatric History: Reports: None Endocrine/Metabolic History: Reports: Obesity/BMI 30+ Hematologic History: Reports: None Immunologic History: Reports: None Oncologic (Cancer) History: Reports: None Other Dermatologic History: acne vulgaris, hidrodenitis, infected skin lesion - Past Surgical History Head Surgeries/Procedures: Reports: None HEENT Surgical History: Reports: Tonsillectomy, Other (See Below) Respiratory Surgical History: Reports: None Female Surgical History: Reports: None, Other (See Below) Endocrine Surgical History: Reports: None Neurological Surgical History: Reports: Lumbar Spine Musculoskeletal Surgical History: Reports: Other (See Below) Oncologic Surgical History: Reports: None Dermatological Surgical History: Reports: None Social & Family History - Family History Endocrine/Metabolic: Reports: Diabetes, type II - Tobacco Use Smoking Status *Q: Current Every Day Smoker Years of Tobacco use: 15 Packs/Tins Daily: 0.5 - Caffeine Use Caffeine Use: Reports: Coffee, Soda - Recreational Drug Use Recreational Drug Use: No H&P Review of Systems - Review of Systems: Review Of Systems: See Below General: Denies: Fever, Chills, Malaise, Weakness, Fatigue, Decreased Appetite HEENT: Reports: No Symptoms Pulmonary: Reports: Shortness of Breath, Wheezing, Cough, Sputum. Denies: Pleuritic Chest Pain, Hemoptysis Cardiovascular: Reports: Dyspnea on Exertion. Denies: Chest Pain, Palpitations , Edema, Lightheadedness, Blood Pressure Problem Gastrointestinal: Denies: Abdominal Pain, Nausea, Vomiting Genitourinary: Reports: No Symptoms Musculoskeletal: Reports: No Symptoms Skin: Denies: Cyanosis Psychiatric: Denies: Depression, Mood Lability, Anxiety, Agitation, Hallucinations, Suicidal Ideation Neurological: Denies: Confusion, Difficulty Walking, Weakness, Gait Disturbance Hematologic/Lymphatic: Reports: No Symptoms Immunologic: Reports: No Symptoms Exam - Exam Exam: See Below - Vital Signs Vital Signs: Last Vital Signs Temp 36.3 C 07/10/17 11:46 Pulse 94 07/10/17 11:46 Resp 24 H 07/10/17 11:46 BP 135/81 07/10/17 11:46 Pulse Ox 90 L 07/10/17 12:53 Weight: 122.47 kg - Exam Quality Assessment: Supplemental Oxygen General: Alert, Oriented, Cooperative, Moderate Distress, Other (Morbidly Obese) HEENT: Conjunctiva Clear, EACs Clear, EOMI, Hearing Intact, Mucosa Moist & [place] , Nares Patent, Normal Nasal Septum, Posterior Pharynx Clear, Pupils Equal, Pupils Reactive Neck: Supple, Trachea Midline, +2 Carotid Pulse wo Bruit, Full Range of Motion, Other (short and thick) Lungs: Normal Respiratory Effort, Decreased Breath Sounds Cardiovascular: Regular Rate, Regular Rhythm GI/Abdominal Exam: Normal Bowel Sounds, Soft, Non-Tender, No Organomegaly, No Distention, No Abnormal Bruit, No Mass (Female) Exam: Deferred Rectal (Female) Exam: Deferred Back Exam: Normal Inspection, Decreased Range of Motion Extremities: Normal Inspection, Normal Range of Motion, Non-Tender, No Pedal Edema, Normal Capillary Refill Skin: Warm, Dry, Intact Neuro Extensive - Mental Status: Oriented x3, Normal Cognition, Memory Intact Neuro Extensive - Motor, Sensory, Reflexes: CN II-XII Intact, Normal Gait Psychiatric: Alert, Normal Affect, Normal Mood - Patient Data Result Diagrams: 07/11/17 06:30 07/11/17 06:30 *Q Meaningful Use (ADM) - VTE *Q VTE Criteria *Q: - Stroke *Q Stroke Criteria *Q: - AMI *Q AMI Criteria *Q: Problem List Initiated/Reviewed/Updated: Yes Orders Last 24hrs: Active Orders 24 hr Category Date Time Status Levofloxacin/Dextrose 5%-Water [Levaquin in D5W 750 MG/ Med 07/10/17 14:20 Active 150 ML] 750 mg Premix Bag 1 bag IV ONETIME Medication Orders Sodium Chloride (Normal Saline) 1,000 mls @ 75 mls/hr IV ASDIRECTED RUBIA Last Admin: 07/10/17 14:01 Dose: 75 mls/hr Levofloxacin/Dextrose 750 mg/ (Premix) 150 mls @ 100 mls/hr IV ONETIME ONE Stop: 07/10/17 15:49 Sodium Chloride (Saline Flush) 10 ml FLUSH ASDIRECTED PRN PRN Reason: Keep Vein Open Last Admin: 07/10/17 13:17 Dose: 10 ml Assessment/Plan Comment:: Assessment/Plan: Acute: Acute Bronchitis - In the setting of Possible Reactive Airway Disease (RAD) and Smoking - CXR 07/09/2017: Increased Precious-hilar markings compatible with Bronchitis - Failed Outpatient Treatment w/ Prednisone and Doxycycline - IV Steroids, Bronchodilators, IV ATB, Magnesium Supplement, Supplemental O2 and Decongestant - Sputum Cx, Mycoplasma Ag, Strep Pneumoniae Ag tests - Serial CXR Dyspnea - 2/2 Above and Excessive Weight - She likely has Obesity Hypoventilation Syndrome - PRN Morphine and Supplemental O2 Probable LUZ/OHS - Will screen here with [facility] - Advised to lose weight Nicotine Dependence - Smokes 1/2 ppd - Offered Nicotine Patch-refused - Counseled on smoking cessation Chronic: GERD Hx/o Cholelithiasis PCOS Chronic Back Pain Endometriosis Lumbar Disc Herniation at L4-L5 Hidradenitis Suppurative Morbid Obesity with BMI 51 Plan: Admit to Med-Surg Routine AM Labs Hold all Home Meds H2 Renny for GED A1C and Thyroid Panel in AM Dietary consult for weight management Inpatient Spirometry to assess for RAD/COPD PT/OT/RT consult DVT PPx: Lovenox Code status: 1
[2017-07-10] MEDS ORDERED: Ondansetron 4 MG/2 ML SDV IV PRN (14:29)
[2017-07-10] MEDS ORDERED: LORazepam 2 MG/ML MDV IV PRN (14:29)
[2017-07-10] MEDS ORDERED: Bisacodyl 5 MG Tab PO PRN (14:29)
[2017-07-10] MEDS ORDERED: Docusate Sodium 100 MG Cap PO PRN (14:29)
[2017-07-10] MEDS ORDERED: Polyethylene Glycol 3350 Powder 17 GM Packet PO PRN (14:29)
[2017-07-10] MEDS ORDERED: Acetaminophen/HYDROcodone 325-5 MG Tab PO PRN (14:29)
[2017-07-10] MEDS ORDERED: Promethazine 12.5 MG in Sodium Chloride 0.9% 50 ML IV PRN (14:29)
[2017-07-10] MEDS ORDERED: Acetaminophen 325 MG Tab PO PRN (14:29)
[2017-07-10] MEDS: Morphine 2 MG/ML Syringe IVPUSH PRN (15:27)
[2017-07-10] MEDS: methylPREDNISolone Sodium Succinate 125 MG/2 ML SDV IVPUSH SCH ×2 (17:09→23:33)
[2017-07-10] MEDS: Albuterol/Ipratropium 3.0-0.5 MG/3 ML Neb Soln NEB PRN ×2 (17:59→21:54)
[2017-07-10] MEDS: Enoxaparin 40 MG/0.4 ML Syringe SUBCUT SCH (21:19)
[2017-07-10] MEDS: Magnesium Oxide 400 MG Tab PO SCH (21:19)
[2017-07-10] MEDS: Temazepam 15 MG Cap PO PRN (21:20)
[2017-07-10] MEDS ORDERED: Bumetanide 1 MG/4 ML MDV IVPUSH ONE (22:36)
[2017-07-11] MEDS: Sodium Chloride 0.9% 1,000 ML IV SCH (02:33)
[2017-07-11] MEDS: Albuterol/Ipratropium 3.0-0.5 MG/3 ML Neb Soln NEB PRN ×3 (04:41→20:21)
[2017-07-11] MEDS ORDERED: Bumetanide 1 MG/4 ML MDV IVPUSH ONE ×2 (06:11→18:00)
[2017-07-11] MEDS: methylPREDNISolone Sodium Succinate 125 MG/2 ML SDV IVPUSH SCH ×4 (06:22→23:21)
[2017-07-11] MEDS: Morphine 2 MG/ML Syringe IVPUSH PRN (06:22)
--- NOTE | 2017-07-11 08:01 | PCM.PN ---
- General Info Date of Service: 07/11/17 Admission Dx/Problem (Free Text): Dyspnea/SOB Subjective Update: Follow Up Functional Status: Reports: Pain Controlled, Tolerating Diet, Urinating - Review of Systems General: Reports: Other (tired). Denies: Fever, Weakness, Fatigue, Malaise, Chills, Night Sweats HEENT: Reports: No Symptoms Pulmonary: Reports: Shortness of Breath, Cough, Sputum. Denies: Pleuritic Chest Pain, Wheezing Cardiovascular: Denies: Chest Pain, Palpitations, Dyspnea on Exertion, Orthopnea , Edema, Lightheadedness Gastrointestinal: Denies: Abdominal Pain, Nausea, Vomiting Genitourinary: Reports: No Symptoms Musculoskeletal: Reports: No Symptoms Skin: Denies: Cyanosis, Pallor, Diaphoresis Neurological: Denies: Dizziness, Difficulty Walking, Weakness, Gait Disturbance Psychiatric: Denies: Confusion, Depression, Mood Lability, Agitation, Cravings, Hallucinations, Suicidal Ideation, Homicidal Ideation Systems Review Comment:: She was up all night due to trouble oxygenation and frequent urination after getting diuretics. She is tired and exhausted. She is now on 15L NRM. She denies having difficulty breathing. Follow up CXR this am shows pulmonary edema on right side. She has no new complaints. She is afebrile. WBC is is up 29.45 from 19.73 and CRP is 5.1. - Patient Data Vitals - Most Recent: Last Vital Signs Temp 36.7 C 07/11/17 03:18 Pulse 70 07/11/17 03:18 Resp 20 07/11/17 03:18 BP 117/54 L 07/11/17 03:18 Pulse Ox 88 L 07/11/17 04:42 Weight - Most Recent: 123.105 kg I&O - Last 24 Hours: Intake & Output 07/10/17 07/11/17 07/11/17 22:59 06:59 14:59 Intake Total 0 600 Balance 0 600 Lab Results Last 24 Hours: Laboratory Results - last 24 hr 07/10/17 07/10/17 07/10/17 Range/Units 14:41 14:45 14:45 WBC 19.73 H (3.98-10.04) K/mm3 RBC 4.56 (3.98-5.22) M/mm3 Hgb 14.5 (11.2-15.7) gm/L Hct 42.7 (34.1-44.9) % MCV 93.6 (79.4-94.8) fl MCH 31.8 (25.6-32.2) pg MCHC 34.0 (32.2-35.5) g/dl RDW Std Deviation 50.6 H (36.4-46.3) fL Plt Count 312 (182-369) K/mm3 MPV 9.9 (9.4-12.3) fl Neut % (Auto) 83.9 H (34.0-71.1) % Lymph % (Auto) 11.2 L (19.3-51.7) % Cherry % (Auto) 4.0 L (4.7-12.5) % Eos % (Auto) 0.1 L (0.7-5.8) Baso % (Auto) 0.3 (0.1-1.2) % Neut # (Auto) 16.57 H (1.56-6.13) K/mm3 Lymph # (Auto) 2.21 (1.18-3.74) K/mm3 Cherry # (Auto) 0.78 H (0.24-0.36) K/mm3 Eos # (Auto) 0.02 L (0.04-0.36) K/mm3 Baso # (Auto) 0.05 (0.01-0.08) K/mm3 Manual Slide Review Abnormal smear Puncture Site Lt radial ABG pH 7.42 (7.35-7.45) ABG pCO2 35.8 (35.0-45.0) mmHg ABG pO2 121.0 H (80.0-100.0) mmHg ABG HCO3 22.5 (22.0-26.0) meq/L ABG O2 Saturation 90.3 L (96.0-97.0) % ABG Base Excess -1.1 (-2-2.0) [place] Test Positive O2 Delivery Device Nasal cannula Oxygen Flow Rate 2.0 FiO2 0.00 L (21.00-100.00) % Sodium 141 (136-145) mEq/L Potassium 3.9 (3.5-5.1) mEq/L Chloride 105 (98-107) mEq/L Carbon Dioxide 26 (21-32) mEq/L Anion Gap 13.9 (5-15) BUN 16 (7-18) mg/dL Creatinine 0.9 (0.55-1.02) mg/dL Est Cr Clr Drug Dosing 65.21 mL/min Estimated GFR (MDRD) > 60 (>60) mL/min BUN/Creatinine Ratio 17.8 (14-18) Glucose 134 H (74-106) mg/dL Hemoglobin A1c (4.50-6.20) % Calcium 8.9 (8.5-10.1) mg/dL Magnesium (1.8-2.4) mg/dl Total Bilirubin 0.7 (0.2-1.0) mg/dL AST 23 (15-37) U/L ALT 31 (14-59) U/L Alkaline Phosphatase 71 (46-116) U/L C-Reactive Protein 4.5 H* (<1.0) mg/dL Total Protein 7.7 (6.4-8.2) g/dl Albumin 3.5 (3.4-5.0) g/dl Globulin 4.2 gm/dL Albumin/Globulin Ratio 0.8 L (1-2) Free T4 (0.76-1.46) ng/dL TSH 3rd Generation (0.358-3.74) uIU/mL HCG, Qual (NEGATIVE) HCG, Quant mIU/mL Mycoplasma pneumon IgM Negative (NEGATIVE) 07/10/17 07/10/17 07/11/17 Range/Units 14:45 14:45 06:30 WBC 29.45 H (3.98-10.04) K/mm3 RBC 4.58 (3.98-5.22) M/mm3 Hgb 14.3 (11.2-15.7) gm/L Hct 42.7 (34.1-44.9) % MCV 93.2 (79.4-94.8) fl MCH 31.2 (25.6-32.2) pg MCHC 33.5 (32.2-35.5) g/dl RDW Std Deviation 51.3 H (36.4-46.3) fL Plt Count 328 (182-369) K/mm3 MPV 9.8 (9.4-12.3) fl Neut % (Auto) 90.6 H (34.0-71.1) % Lymph % (Auto) 6.7 L (19.3-51.7) % Cherry % (Auto) 2.1 L (4.7-12.5) % Eos % (Auto) 0 L (0.7-5.8) Baso % (Auto) 0.1 (0.1-1.2) % Neut # (Auto) 26.68 H (1.56-6.13) K/mm3 Lymph # (Auto) 1.98 (1.18-3.74) K/mm3 Cherry # (Auto) 0.61 H (0.24-0.36) K/mm3 Eos # (Auto) 0.00 L (0.04-0.36) K/mm3 Baso # (Auto) 0.03 (0.01-0.08) K/mm3 Manual Slide Review Abnormal smear Puncture Site ABG pH (7.35-7.45) ABG pCO2 (35.0-45.0) mmHg ABG pO2 (80.0-100.0) mmHg ABG HCO3 (22.0-26.0) meq/L ABG O2 Saturation (96.0-97.0) % ABG Base Excess (-2-2.0) [place] Test O2 Delivery Device Oxygen Flow Rate FiO2 (21.00-100.00) % Sodium (136-145) mEq/L Potassium (3.5-5.1) mEq/L Chloride (98-107) mEq/L Carbon Dioxide (21-32) mEq/L Anion Gap (5-15) BUN (7-18) mg/dL Creatinine (0.55-1.02) mg/dL Est Cr Clr Drug Dosing mL/min Estimated GFR (MDRD) (>60) mL/min BUN/Creatinine Ratio (14-18) Glucose (74-106) mg/dL Hemoglobin A1c (4.50-6.20) % Calcium (8.5-10.1) mg/dL Magnesium (1.8-2.4) mg/dl Total Bilirubin (0.2-1.0) mg/dL AST (15-37) U/L ALT (14-59) U/L Alkaline Phosphatase (46-116) U/L C-Reactive Protein (<1.0) mg/dL Total Protein (6.4-8.2) g/dl Albumin (3.4-5.0) g/dl Globulin gm/dL Albumin/Globulin Ratio (1-2) Free T4 (0.76-1.46) ng/dL TSH 3rd Generation (0.358-3.74) uIU/mL HCG, Qual Negative (NEGATIVE) HCG, Quant 1.0 mIU/mL Mycoplasma pneumon IgM (NEGATIVE) 07/11/17 07/11/17 07/11/17 Range/Units 06:30 06:30 06:30 WBC (3.98-10.04) K/mm3 RBC (3.98-5.22) M/mm3 Hgb (11.2-15.7) gm/L Hct (34.1-44.9) % MCV (79.4-94.8) fl MCH (25.6-32.2) pg MCHC (32.2-35.5) g/dl RDW Std Deviation (36.4-46.3) fL Plt Count (182-369) K/mm3 MPV (9.4-12.3) fl Neut % (Auto) (34.0-71.1) % Lymph % (Auto) (19.3-51.7) % Cherry % (Auto) (4.7-12.5) % Eos % (Auto) (0.7-5.8) Baso % (Auto) (0.1-1.2) % Neut # (Auto) (1.56-6.13) K/mm3 Lymph # (Auto) (1.18-3.74) K/mm3 Cherry # (Auto) (0.24-0.36) K/mm3 Eos # (Auto) (0.04-0.36) K/mm3 Baso # (Auto) (0.01-0.08) K/mm3 Manual Slide Review Puncture Site ABG pH (7.35-7.45) ABG pCO2 (35.0-45.0) mmHg ABG pO2 (80.0-100.0) mmHg ABG HCO3 (22.0-26.0) meq/L ABG O2 Saturation (96.0-97.0) % ABG Base Excess (-2-2.0) [place] Test O2 Delivery Device Oxygen Flow Rate FiO2 (21.00-100.00) % Sodium 138 (136-145) mEq/L Potassium 4.0 (3.5-5.1) mEq/L Chloride 104 (98-107) mEq/L Carbon Dioxide 27 (21-32) mEq/L Anion Gap 11.0 (5-15) BUN 17 (7-18) mg/dL Creatinine 0.8 (0.55-1.02) mg/dL Est Cr Clr Drug Dosing 73.36 mL/min Estimated GFR (MDRD) > 60 (>60) mL/min BUN/Creatinine Ratio 21.3 H (14-18) Glucose 223 H (74-106) mg/dL Hemoglobin A1c 6.00 (4.50-6.20) % Calcium 8.7 (8.5-10.1) mg/dL Magnesium 2.3 (1.8-2.4) mg/dl Total Bilirubin (0.2-1.0) mg/dL AST (15-37) U/L ALT (14-59) U/L Alkaline Phosphatase (46-116) U/L C-Reactive Protein 5.1 H* (<1.0) mg/dL Total Protein (6.4-8.2) g/dl Albumin (3.4-5.0) g/dl Globulin gm/dL Albumin/Globulin Ratio (1-2) Free T4 1.36 (0.76-1.46) ng/dL TSH 3rd Generation 0.617 (0.358-3.74) uIU/mL HCG, Qual (NEGATIVE) HCG, Quant mIU/mL Mycoplasma pneumon IgM (NEGATIVE) Med Orders - Current: Current Medications Acetaminophen (Tylenol) 650 mg PO Q4H PRN PRN Reason: Pain (Mild 1-3)/fever Hydrocodone Bitart/Acetaminophen (Wel[place] 325-5 Mg) 1 tab PO Q4H PRN PRN Reason: Pain (moderate 4-6) Albuterol/Ipratropium (Duoneb 3.0-0.5 Mg/3 Ml) 3 ml NEB Q4H PRN PRN Reason: Shortness Of Breath/wheezing Last Admin: 07/11/17 04:41 Dose: 3 ml Bisacodyl (Dulcolax) 5 mg PO DAILY PRN PRN Reason: Constipation Docusate Sodium (Colace) 100 mg PO BID PRN PRN Reason: Constipation Enoxaparin Sodium (Lovenox) 40 mg SUBCUT BID [facility] Last Admin: 07/10/17 21:19 Dose: 40 mg Hydralazine HCl (Apresoline) 20 mg IVPUSH Q4H PRN PRN Reason: Hypertension Levofloxacin/Dextrose 750 mg/ (Premix) 150 mls @ 100 mls/hr IV Q24H [facility] Promethazine HCl 12.5 mg/ (Sodium Chloride) 50.5 mls @ 100 mls/hr IV Q6H PRN PRN Reason: Nausea/Vomiting Lorazepam (Ativan) 2 mg IVPUSH Q4H PRN PRN Reason: Seizures Lorazepam (Ativan) 1 mg IV Q6H PRN PRN Reason: Anxiety Magnesium Oxide (Magnesium Oxide) 400 mg PO BID [facility] Last Admin: 07/10/17 21:19 Dose: 400 mg Magnesium Sulfate (Pharmacy To Dose - Magnesium Replacement) 1 dose .XX ASDIRECTED [facility] Methylprednisolone Sodium Succinate (Solu-Medrol) 125 mg IVPUSH Q8H [facility] Last Admin: 07/11/17 06:22 Dose: 125 mg Metoprolol Tartrate (Lopressor) 5 mg IVPUSH Q4H PRN PRN Reason: Tachycardia Morphine Sulfate (Morphine) 2 mg IVPUSH Q4H PRN PRN Reason: Other Stop: 07/11/17 14:30 Last Admin: 07/11/17 06:22 Dose: 2 mg Ondansetron HCl (Zofran) 4 mg IV Q6H PRN PRN Reason: Nausea/Vomiting Last Admin: 07/10/17 17:42 Dose: 4 mg Polyethylene Glycol (Miralax) 17 gm PO DAILY PRN PRN Reason: Constipation Potassium Chloride (Pharmacy To Dose - Potassium Replacement) 1 dose .XX ASDIRECTED [facility] Senna/Docusate Sodium (Senna Plus) 1 tab PO BID PRN PRN Reason: Constipation Sodium Chloride (Saline Flush) 10 ml FLUSH ASDIRECTED PRN PRN Reason: Keep Vein Open Last Admin: 07/10/17 13:17 Dose: 10 ml Temazepam (Restoril) 30 mg PO BEDTIME PRN PRN Reason: Sleep Last Admin: 07/10/17 21:20 Dose: 30 mg Discontinued Medications Albuterol (Proventil Neb Soln) 2.5 mg NEB ONETIME ONE Stop: 07/10/17 11:49 Last Admin: 07/10/17 12:04 Dose: 2.5 mg Albuterol/Ipratropium (Duoneb 3.0-0.5 Mg/3 Ml) 3 ml NEB ONETIME ONE Stop: 07/10/17 11:49 Last Admin: 07/10/17 12:04 Dose: 3 ml Albuterol/Ipratropium (Duoneb 3.0-0.5 Mg/3 Ml) 3 ml NEB ONETIME ONE Stop: 07/10/17 12:53 Last Admin: 07/10/17 13:05 Dose: 3 ml Bumetanide (Bumex) 1 mg IVPUSH ONETIME ONE Stop: 07/10/17 22:37 Last Admin: 07/10/17 23:33 Dose: 1 mg Bumetanide (Bumex) 1 mg IVPUSH ONETIME ONE Stop: 07/11/17 06:12 Last Admin: 07/11/17 06:33 Dose: 1 mg Guaifenesin (Mucinex) 1,200 mg PO ONETIME ONE Stop: 07/10/17 13:45 Last Admin: 07/10/17 13:58 Dose: 1,200 mg Magnesium Sulfate 2 gm/ Premix 50 mls @ 50 mls/hr IV ONETIME ONE Stop: 07/10/17 13:50 Last Admin: 07/10/17 13:13 Dose: 50 mls/hr Sodium Chloride (Normal Saline) 1,000 mls @ 75 mls/hr IV ASDIRECTED [facility] Last Admin: 07/11/17 02:33 Dose: 75 mls/hr Levofloxacin/Dextrose 750 mg/ (Premix) 150 mls @ 100 mls/hr IV ONETIME ONE Stop: 07/10/17 15:49 Last Admin: 07/10/17 17:12 Dose: 100 mls/hr Levalbuterol HCl (Xopenex) 1.25 mg NEB ONETIME ONE Stop: 07/10/17 12:54 Last Admin: 07/10/17 13:09 Dose: 1.25 mg Prednisone (Prednisone) 20 mg PO ONETIME ONE Stop: 07/10/17 12:52 Last Admin: 07/10/17 13:16 Dose: 20 mg - Exam Quality Assessment: Supplemental Oxygen General: Alert, Oriented, Cooperative, Mild Distress, Other (Morbidly Obese) HEENT: Pupils Equal, Pupils Reactive, EOMI, Mucous Membr. Moist/[place] Neck: Supple, Trachea Midline, No JVD, Other (short and thick) Lungs: Decreased Breath Sounds, Crackles. No: Normal Respiratory Effort Cardiovascular: Regular Rate, Regular Rhythm, No Murmurs GI/Abdominal Exam: Normal Bowel Sounds, Soft, Non-Tender, No Organomegaly, No Distention, No Abnormal Bruit, No Mass, Other (Obese) (Female) Exam: Deferred Back Exam: Normal Inspection, Decreased Range of Motion Extremities: Normal Inspection, Normal Range of Motion, Non-Tender, No Pedal Edema, Normal Capillary Refill Peripheral Pulses: 2+: Dorsalis Pedis (L), Dorsalis Pedis (R) Skin: Warm Neurological: No New Focal Deficit Psy/Mental Status: Alert, Normal Affect, Normal Mood. No: Suicidal Ideation, Homicidal Ideation, Hallucinations - Problem List Review Problem List Initiated/Reviewed/Updated: Yes - My Orders Last 24 Hours: My Active Orders 07/10/17 14:27 LORazepam [Ativan] 2 mg IVPUSH Q4H PRN Metoprolol Tartrate [Lopressor] 5 mg IVPUSH Q4H PRN hydrALAZINE [Apresoline] 20 mg IVPUSH Q4H PRN 07/10/17 14:29 Height and Weight [RC] 04 Oxygen Therapy [RC] PRN Up With Assistance [RC] ASDIRECTED Up ad Sneha [RC] ASDIRECTED VTE/DVT Education [RC] 1000,2200 Vital Signs [RC] Q4HR Acetaminophen [Tylenol] 650 mg PO Q4H PRN Acetaminophen/HYDROcodone [Welsh 325-5 MG] 1 tab PO Q4H PRN Albuterol/Ipratropium [DuoNeb 3.0-0.5 MG/3 ML] 3 ml NEB Q4H PRN Bisacodyl [Dulcolax] 5 mg PO DAILY PRN Docusate Sodium [Colace] 100 mg PO BID PRN Docusate Sodium/Sennosides [Senna Plus] 1 tab PO BID PRN LORazepam [Ativan] 1 mg IV Q6H PRN Morphine 2 mg IVPUSH Q4H PRN Ondansetron [Zofran] 4 mg IV Q6H PRN Polyethylene Glycol 3350 [MiraLAX] 17 gm PO DAILY PRN Promethazine [Phenergan] 12.5 mg Sodium Chloride 0.9% [Normal Saline] 50 ml IV Q6H Temazepam [Restoril] 30 mg PO BEDTIME PRN Resuscitation Status Routine 07/10/17 14:30 Cardiac Monitoring [RC] CONTINUOUS Pulse Oximetry [RC] CONTINUOUS Magnesium Rep Pharmacy to Dose [Pharmacy to Dose - Magnesium Replacement] 1 dose .XX ASDIRECTED Potassium Rep Pharmacy to Dose [Pharmacy to Dose - Potassium Replacement] 1 dose .XX ASDIRECTED 07/10/17 14:32 RT Aerosol Therapy [RC] ASDIRECTED 07/10/17 14:33 Consult to Case Management [CONS] Routine Consult to Associate Professor Of Theology [CONS] Routine Consult to Auto Tune Up Mechanic [CONS] Routine Consult to Spiritual Care [CONS] Routine OT Evaluation and Treatment [CONS] Routine PT Evaluation and Treatment [CONS] Routine Respiratory Care Assess and Treatment [CONS] Routine 07/10/17 15:30 methylPREDNISolone Sod Succ [Solu-MEDROL] 125 mg IVPUSH Q8H 07/10/17 17:15 RT PFT Spirometry Screen Pre/P [RC] Click to Edit 07/10/17 18:25 RT Incentive Spirometry [RC] ASDIRECTED 07/10/17 21:00 Enoxaparin [Lovenox] 40 mg SUBCUT BID Magnesium Oxide 400 mg PO BID 07/10/17 21:45 CULTURE SPUTUM + SMEAR [RM] Routine 07/10/17 23:51 STREP PNEUMONIAE ANTIGEN [MREF] Stat 07/10/17 Dinner Heart Healthy Diet [DIET] 07/11/17 18:00 Levofloxacin/Dextrose 5%-Water [Levaquin in D5W 750 MG/150 ML] 750 mg Premix Bag 1 bag IV Q24H 07/12/17 05:11 Chest 1V Frontal [CR] Routine BASIC METABOLIC PANEL,BMP [CHEM] AM C-REACTIVE PROTEIN [CHEM] AM CBC WITH AUTO DIFF [HEME] AM 07/13/17 05:11 BASIC METABOLIC PANEL,BMP [CHEM] AM C-REACTIVE PROTEIN [CHEM] AM CBC WITH AUTO DIFF [HEME] AM 07/14/17 05:11 BASIC METABOLIC PANEL,BMP [CHEM] AM C-REACTIVE PROTEIN [CHEM] AM CBC WITH AUTO DIFF [HEME] AM - Plan Plan:: Assessment/Plan: Acute: Acute Bronchitis w/ Pulmonary Edema - In the setting of Possible Reactive Airway Disease (RAD) and Smoking - CXR 07/09/2017: Increased Precious-hilar markings compatible with Bronchitis; follow up CXR this am shows pulmonary congestion vs edema on the right side - Failed Outpatient Treatment w/ Prednisone and Doxycycline - Continue IV Steroids, Bronchodilators, IV ATB, Magnesium Supplement, Supplemental O2 and Decongestant - Stat ABG, may consider NIPPV if needed - Sputum Cx and Mycoplasma Ag both negative - Strep Pneumoniae Ag test-pending - CXR in AM Dyspnea, Improved - 2/2 Above and Excessive Weight - She likely has Obesity Hypoventilation Syndrome - PRN Morphine and Supplemental O2 Probable LUZ/OHS - Will screen here with STOP BAN low risk - Advised to lose weight - Dietary consult for weight management Nicotine Dependence - Smokes 1/2 ppd - Offered Nicotine Patch-refused - Counseled on smoking cessation Leukocytosis - WBC 19.73 --> 29.45 - 2/2 steroid use - CRP 4.5 ---> 5.1 Chronic: GERD Hx/o Cholelithiasis PCOS Chronic Back Pain Endometriosis Lumbar Disc Herniation at L4-L5 Hidradenitis Suppurative Morbid Obesity with BMI 51 Plan: She looks more worse than yesterday Routine AM Labs Continue treatment A1C is 6 with normal thyroid panel Stat Troponin, D-dimer and Pro-BNP level along with ABG Routine Bumex for diuretics Inpatient Spirometry to assess for RAD Continue PT/OT/RT Consider high flow O2 if not NIPPV pending ABG DVT Ppx: Lovenox Code status: 1
[2017-07-11] MEDS: Enoxaparin 40 MG/0.4 ML Syringe SUBCUT SCH ×2 (08:39→20:08)
[2017-07-11] MEDS: Magnesium Oxide 400 MG Tab PO SCH ×2 (08:39→20:07)
[2017-07-11] MEDS ORDERED: Morphine 2 MG/ML Syringe IVPUSH ONE (09:10)
[2017-07-11] MEDS ORDERED: guaiFENesin 600 MG Tab.ER PO ONE (09:12)
[2017-07-11] MEDS ORDERED: Acetaminophen/Butalbital/Caffeine 325-50-40 MG Tab PO PRN (15:10)
[2017-07-11] MEDS: Levofloxacin/Dextrose 5%-Water 750 MG in Premix Bag 1 BAG IV SCH (17:21)
[2017-07-11] MEDS: guaiFENesin 600 MG Tab.ER PO SCH (20:07)
[2017-07-12] MEDS: methylPREDNISolone Sodium Succinate 125 MG/2 ML SDV IVPUSH SCH ×3 (06:54→23:31)
[2017-07-12] MEDS: Bumetanide 1 MG Tab PO SCH ×2 (08:33→15:30)
[2017-07-12] MEDS: Magnesium Oxide 400 MG Tab PO SCH ×2 (08:33→21:22)
[2017-07-12] MEDS: Enoxaparin 40 MG/0.4 ML Syringe SUBCUT SCH ×2 (08:34→21:23)
[2017-07-12] MEDS: guaiFENesin 600 MG Tab.ER PO SCH ×2 (08:34→21:22)
[2017-07-12] MEDS: Albuterol/Ipratropium 3.0-0.5 MG/3 ML Neb Soln NEB PRN ×3 (08:42→15:23)
[2017-07-12] MEDS ORDERED: Iopamidol 755 MG/ML 50 ML Bottle IVPUSH ONE (09:20)
[2017-07-12] MEDS ORDERED: Sodium Chloride 0.9% 10 ML Syringe FLUSH ONE (09:20)
[2017-07-12] MEDS ORDERED: Iopamidol 755 Mg/ML 100 ML Bottle IVPUSH ONE (09:20)
--- NOTE | 2017-07-12 09:26 | PCM.PN ---
- General Info Date of Service: 07/12/17 Admission Dx/Problem (Free Text): Dyspnea/SOB Brigida is seen this morning sitting upright in bed feeling more SOB with worsening hacky, dry cough. She did not sleep much or rest last night due to coughing fits. Once the cough is triggered it is difficult for her to stop. She gets more SOB with coughing, she is not able to lay flat or even recline back today due to feeling more SOB. She has been afebrile overnight. VSS. States she takes her oxygen off to ambulate to , will put her sat monitor back on when she gets back to bed with "86" being lowest sat that she has seen when she returns. Overall she states she is not feeling any better but also not any worse today. Appetite is normal. She is voiding and moving bowels. No other new complaints or new pain/discomfort. Functional Status: Reports: Pain Controlled, Tolerating Diet, Ambulating, Urinating, Incentive Spirometry - Review of Systems General: Reports: Fatigue (d/t coughing and lack of sleep). Denies: Fever HEENT: Reports: Headaches (d/t coughing), Sinus Congestion Pulmonary: Reports: Shortness of Breath, Cough, Wheezing. Denies: Pleuritic Chest Pain, Sputum, Hemoptysis Cardiovascular: Reports: Dyspnea on Exertion, Orthopnea, Lightheadedness. Denies: Chest Pain, Palpitations, Edema Gastrointestinal: Reports: No Symptoms Genitourinary: Reports: No Symptoms Musculoskeletal: Reports: Back Pain (chronic- unchanged) - Patient Data Vitals - Most Recent: Last Vital Signs Temp 97.2 F 07/12/17 08:22 Pulse 80 07/12/17 08:22 Resp 22 H 07/12/17 08:22 BP 125/65 07/12/17 08:22 Pulse Ox 93 L 07/12/17 09:01 Weight - Most Recent: 272 lb 6.4 oz I&O - Last 24 Hours: Intake & Output 07/11/17 07/12/17 07/12/17 22:59 06:59 14:59 Intake Total 810 600 Balance 810 600 Lab Results Last 24 Hours: Laboratory Results - last 24 hr 07/11/17 07/11/17 07/11/17 Range/Units 06:30 09:17 09:18 WBC (3.98-10.04) K/mm3 RBC (3.98-5.22) M/mm3 Hgb (11.2-15.7) gm/L Hct (34.1-44.9) % MCV (79.4-94.8) fl MCH (25.6-32.2) pg MCHC (32.2-35.5) g/dl RDW Std Deviation (36.4-46.3) fL Plt Count (182-369) K/mm3 MPV (9.4-12.3) fl Neut % (Auto) (34.0-71.1) % Lymph % (Auto) (19.3-51.7) % [place] % (Auto) (4.7-12.5) % Eos % (Auto) (0.7-5.8) Baso % (Auto) (0.1-1.2) % Neut # (Auto) (1.56-6.13) K/mm3 Lymph # (Auto) (1.18-3.74) K/mm3 [place] # (Auto) (0.24-0.36) K/mm3 Eos # (Auto) (0.04-0.36) K/mm3 Baso # (Auto) (0.01-0.08) K/mm3 Manual Slide Review D-Dimer, Quantitative 0.44 (0.19-0.59) mg/L Puncture Site Lt radial ABG pH 7.36 (7.35-7.45) ABG pCO2 41.7 (35.0-45.0) mmHg ABG pO2 69.0 L (80.0-100.0) mmHg ABG HCO3 23.2 (22.0-26.0) meq/L ABG O2 Saturation 94.3 L (96.0-97.0) % ABG Base Excess -1.6 (-2-2.0) [place] Test Positive O2 Delivery Device Mask Oxygen Flow Rate 15.0 FiO2 0.00 L (21.00-100.00) % Sodium (136-145) mEq/L Potassium (3.5-5.1) mEq/L Chloride (98-107) mEq/L Carbon Dioxide (21-32) mEq/L Anion Gap (5-15) BUN (7-18) mg/dL Creatinine (0.55-1.02) mg/dL Est Cr Clr Drug Dosing mL/min Estimated GFR (MDRD) (>60) mL/min BUN/Creatinine Ratio (14-18) Glucose (74-106) mg/dL Calcium (8.5-10.1) mg/dL Troponin I < 0.017 (0.00-0.056) ng/mL C-Reactive Protein (<1.0) mg/dL NT-Pro-B Natriuret Pep 186 H (0-125) pg/mL 07/12/17 07/12/17 Range/Units 05:30 05:30 WBC 32.23 H (3.98-10.04) K/mm3 RBC 4.48 (3.98-5.22) M/mm3 Hgb 14.1 (11.2-15.7) gm/L Hct 42.7 (34.1-44.9) % MCV 95.3 H (79.4-94.8) fl MCH 31.5 (25.6-32.2) pg MCHC 33.0 (32.2-35.5) g/dl RDW Std Deviation 51.8 H (36.4-46.3) fL Plt Count 330 (182-369) K/mm3 MPV 10.4 (9.4-12.3) fl Neut % (Auto) 87.2 H (34.0-71.1) % Lymph % (Auto) 8.0 L (19.3-51.7) % [place] % (Auto) 4.1 L (4.7-12.5) % Eos % (Auto) 0 L (0.7-5.8) Baso % (Auto) 0.1 (0.1-1.2) % Neut # (Auto) 28.12 H (1.56-6.13) K/mm3 Lymph # (Auto) 2.59 (1.18-3.74) K/mm3 [place] # (Auto) 1.32 H (0.24-0.36) K/mm3 Eos # (Auto) 0.00 L (0.04-0.36) K/mm3 Baso # (Auto) 0.02 (0.01-0.08) K/mm3 Manual Slide Review Abnormal smear D-Dimer, Quantitative (0.19-0.59) mg/L Puncture Site ABG pH (7.35-7.45) ABG pCO2 (35.0-45.0) mmHg ABG pO2 (80.0-100.0) mmHg ABG HCO3 (22.0-26.0) meq/L ABG O2 Saturation (96.0-97.0) % ABG Base Excess (-2-2.0) [place] Test O2 Delivery Device Oxygen Flow Rate FiO2 (21.00-100.00) % Sodium 141 (136-145) mEq/L Potassium 4.2 (3.5-5.1) mEq/L Chloride 105 (98-107) mEq/L Carbon Dioxide 27 (21-32) mEq/L Anion Gap 13.2 (5-15) BUN 24 H (7-18) mg/dL Creatinine 0.7 (0.55-1.02) mg/dL Est Cr Clr Drug Dosing 83.84 mL/min Estimated GFR (MDRD) > 60 (>60) mL/min BUN/Creatinine Ratio 34.3 H (14-18) Glucose 155 H (74-106) mg/dL Calcium 9.1 (8.5-10.1) mg/dL Troponin I (0.00-0.056) ng/mL C-Reactive Protein 4.0 H* (<1.0) mg/dL NT-Pro-B Natriuret Pep (0-125) pg/mL Ronnie Results Last 24 Hours: Microbiology 07/12/17 08:40 Influenza Type A Antigen Screen - Final Nasal, Right NEGATIVE INFLUENZA A VIRUS AG Influenza Type B Antigen Screen - Final NEGATIVE INFLUENZA B VIRUS AG 07/11/17 09:40 Gram Stain - Final Sputum - Expectorated Sputum Culture - Preliminary Med Orders - Current: Current Medications Acetaminophen (Tylenol) 650 mg PO Q4H PRN PRN Reason: Pain (Mild 1-3)/fever Acetaminophen/Butalbital/Caffeine (Fioricet 325-50-40 Mg) 1 tab PO Q6H PRN PRN Reason: Headache Last Admin: 07/11/17 15:13 Dose: 1 tab Hydrocodone Bitart/Acetaminophen (Platinum 325-5 Mg) 1 tab PO Q4H PRN PRN Reason: Pain (moderate 4-6) Albuterol/Ipratropium (Duoneb 3.0-0.5 Mg/3 Ml) 3 ml NEB Q4H PRN PRN Reason: Shortness Of Breath/wheezing Last Admin: 07/12/17 08:42 Dose: 3 ml Bisacodyl (Dulcolax) 5 mg PO DAILY PRN PRN Reason: Constipation Bumetanide (Bumex) 1 mg PO BIDDIURETIC [facility] Last Admin: 07/12/17 08:33 Dose: 1 mg Docusate Sodium (Colace) 100 mg PO BID PRN PRN Reason: Constipation Enoxaparin Sodium (Lovenox) 40 mg SUBCUT BID [facility] Last Admin: 07/12/17 08:34 Dose: 40 mg Guaifenesin (Mucinex) 1,200 mg PO BID [facility] Last Admin: 07/12/17 08:34 Dose: 1,200 mg Hydralazine HCl (Apresoline) 20 mg IVPUSH Q4H PRN PRN Reason: Hypertension Levofloxacin/Dextrose 750 mg/ (Premix) 150 mls @ 100 mls/hr IV Q24H [facility] Last Admin: 07/11/17 17:21 Dose: 100 mls/hr Promethazine HCl 12.5 mg/ (Sodium Chloride) 50.5 mls @ 100 mls/hr IV Q6H PRN PRN Reason: Nausea/Vomiting Sodium Chloride (Normal Saline) 100 mls @ 60 mls/hr IV ASDIRECTED [facility] Iopamidol (Isovue-370 (76%)) 50 ml IVPUSH ONETIME ONE Stop: 07/12/17 09:21 Iopamidol (Isovue-370 (76%)) 100 ml IVPUSH ONETIME ONE Stop: 07/12/17 09:21 Lorazepam (Ativan) 2 mg IVPUSH Q4H PRN PRN Reason: Seizures Lorazepam (Ativan) 1 mg IV Q6H PRN PRN Reason: Anxiety Magnesium Oxide (Magnesium Oxide) 400 mg PO BID [facility] Last Admin: 07/12/17 08:33 Dose: 400 mg Magnesium Sulfate (Pharmacy To Dose - Magnesium Replacement) 0 dose .XX ASDIRECTED PRN PRN Reason: RX TO WATCH MAG LEVELS Methylprednisolone Sodium Succinate (Solu-Medrol) 125 mg IVPUSH Q8H [facility] Last Admin: 07/12/17 06:54 Dose: 125 mg Metoprolol Tartrate (Lopressor) 5 mg IVPUSH Q4H PRN PRN Reason: Tachycardia Ondansetron HCl (Zofran) 4 mg IV Q6H PRN PRN Reason: Nausea/Vomiting Last Admin: 07/10/17 17:42 Dose: 4 mg Polyethylene Glycol (Miralax) 17 gm PO DAILY PRN PRN Reason: Constipation Potassium Chloride (Pharmacy To Dose - Potassium Replacement) 0 dose .XX ASDIRECTED PRN PRN Reason: RX TO WATCH K LEVELS Senna/Docusate Sodium (Senna Plus) 1 tab PO BID PRN PRN Reason: Constipation Sodium Chloride (Saline Flush) 10 ml FLUSH ASDIRECTED PRN PRN Reason: Keep Vein Open Last Admin: 07/10/17 13:17 Dose: 10 ml Sodium Chloride (Saline Flush) 10 ml FLUSH ONETIME ONE Stop: 07/12/17 09:21 Temazepam (Restoril) 30 mg PO BEDTIME PRN PRN Reason: Sleep Last Admin: 07/10/17 21:20 Dose: 30 mg Discontinued Medications Albuterol (Proventil Neb Soln) 2.5 mg NEB ONETIME ONE Stop: 07/10/17 11:49 Last Admin: 07/10/17 12:04 Dose: 2.5 mg Albuterol/Ipratropium (Duoneb 3.0-0.5 Mg/3 Ml) 3 ml NEB ONETIME ONE Stop: 07/10/17 11:49 Last Admin: 07/10/17 12:04 Dose: 3 ml Albuterol/Ipratropium (Duoneb 3.0-0.5 Mg/3 Ml) 3 ml NEB ONETIME ONE Stop: 07/10/17 12:53 Last Admin: 07/10/17 13:05 Dose: 3 ml Bumetanide (Bumex) 1 mg IVPUSH ONETIME ONE Stop: 07/10/17 22:37 Last Admin: 07/10/17 23:33 Dose: 1 mg Bumetanide (Bumex) 1 mg IVPUSH ONETIME ONE Stop: 07/11/17 06:12 Last Admin: 07/11/17 06:33 Dose: 1 mg Bumetanide (Bumex) 1 mg IVPUSH ONETIME ONE Stop: 07/11/17 18:01 Last Admin: 07/11/17 18:52 Dose: 1 mg Guaifenesin (Mucinex) 1,200 mg PO ONETIME ONE Stop: 07/10/17 13:45 Last Admin: 07/10/17 13:58 Dose: 1,200 mg Guaifenesin (Mucinex) 1,200 mg PO ONETIME ONE Stop: 07/11/17 09:13 Last Admin: 07/11/17 09:40 Dose: 1,200 mg Magnesium Sulfate 2 gm/ Premix 50 mls @ 50 mls/hr IV ONETIME ONE Stop: 07/10/17 13:50 Last Admin: 07/10/17 13:13 Dose: 50 mls/hr Sodium Chloride (Normal Saline) 1,000 mls @ 75 mls/hr IV ASDIRECTED [facility] Last Admin: 07/11/17 02:33 Dose: 75 mls/hr Levofloxacin/Dextrose 750 mg/ (Premix) 150 mls @ 100 mls/hr IV ONETIME ONE Stop: 07/10/17 15:49 Last Admin: 07/10/17 17:12 Dose: 100 mls/hr Levalbuterol HCl (Xopenex) 1.25 mg NEB ONETIME ONE Stop: 07/10/17 12:54 Last Admin: 07/10/17 13:09 Dose: 1.25 mg Morphine Sulfate (Morphine) 2 mg IVPUSH Q4H PRN PRN Reason: Other Stop: 07/11/17 14:30 Last Admin: 07/11/17 06:22 Dose: 2 mg Morphine Sulfate (Morphine) 1 mg IVPUSH ONETIME ONE Stop: 07/11/17 09:11 Last Admin: 07/11/17 09:52 Dose: 1 mg Prednisone (Prednisone) 20 mg PO ONETIME ONE Stop: 07/10/17 12:52 Last Admin: 07/10/17 13:16 Dose: 20 mg - Exam Quality Assessment: Supplemental Oxygen, DVT Prophylaxis General: Alert, Oriented, Cooperative, No Acute Distress HEENT: Pupils Equal, EOMI, Mucous Membr. Moist/[place]: Supple Lungs: Decreased Breath Sounds (throughout), Wheezing (expiratory). No: Crackles, Rhonchi Cardiovascular: Regular Rate, Regular Rhythm, No Murmurs GI/Abdominal Exam: Normal Bowel Sounds, Soft, Non-Tender (Female) Exam: Deferred Back Exam: Normal Inspection Extremities: Normal Inspection, No Pedal Edema, Normal Capillary Refill Peripheral Pulses: 1+: Dorsalis Pedis (L), Dorsalis Pedis (R) Skin: Warm, Dry Neurological: No New Focal Deficit Psy/Mental Status: Alert, Normal Affect, Normal Mood - Problem List & Annotations (1) Acute bronchitis SNOMED Code(s): 37962964 Code(s): J20.9 - ACUTE BRONCHITIS, UNSPECIFIED Status: Acute Priority: High Current Visit: Yes Qualifiers: Bronchitis organism: unspecified organism Qualified Code(s): J20.9 - Acute bronchitis, unspecified (2) Hypoxia SNOMED Code(s): 723259726, 124208938 Code(s): R09.02 - HYPOXEMIA Status: Acute Priority: High Current Visit : Yes (3) Dyspnea on exertion SNOMED Code(s): 48547012 Code(s): R06.09 - OTHER FORMS OF DYSPNEA Status: Acute Priority: High Current Visit: Yes (4) Orthopnea SNOMED Code(s): 55911705 Code(s): R06.01 - ORTHOPNEA Status: Acute Priority: High Current Visit : Yes (5) Tobacco use disorder SNOMED Code(s): 793908191, 761003067 Code(s): F17.200 - NICOTINE DEPENDENCE, UNSPECIFIED, UNCOMPLICATED Status: Chronic Priority: High Current Visit: Yes - Problem List Review Problem List Initiated/Reviewed/Updated: Yes - My Orders Last 24 Hours: My Active Orders 07/12/17 09:14 Ang Chest [CT] Routine BLOOD GAS ARTERIAL [BG] Urgent RESPIRATORY PANEL BY PCR [MREF] Routine - Plan Plan:: Assessment/Plan: Acute: Acute Bronchitis w/ Pulmonary Edema---slow to minimal improvements - In the setting of Possible Reactive Airway Disease (RAD) and Smoking - CXR 07/09/2017: Increased Precious-hilar markings compatible with Bronchitis; follow up CXR this am shows pulmonary congestion vs edema on the right side - Failed Outpatient Treatment w/ Prednisone and Doxycycline - Continue IV Steroids, Bronchodilators/SVN/RT tx, IV ATB, Supplemental O2 and Decongestant - Repeat ABG this am - Sputum Cx and Mycoplasma Ag both negative - Strep Pneumoniae Ag test-pending - Resp viral panel ordered; flu ordered--neg influenza A/B - F/up CXR this am with slight improvement - CTA today Dyspnea, persistent, [place]- worsened - 2/2 Above and Excessive Weight - She likely has Obesity Hypoventilation Syndrome - PRN Morphine and Supplemental O2 Probable LUZ/OHS - Will screen here with [facility]: scored 2 = low risk; spoke with her at length, recommend f/up with PCP when feels well for screening overnight study. - Advised to lose weight - Dietary consult for weight management Nicotine Dependence - Smokes 1 ppd x 23 years - Offered Nicotine Patch-refused - Counseled on smoking cessation Leukocytosis - WBC 19.73 --> 29.45-->32 - 2/2 steroid use - CRP 4.5 ---> 5.1--> 4.0 Chronic: GERD Hx/o Cholelithiasis PCOS Chronic Back Pain Endometriosis Lumbar Disc Herniation at L4-L5 Hidradenitis Suppurative Morbid Obesity with BMI 51 Plan: Minimal improvements Routine AM Labs Continue treatment as noted above A1C is 6 with normal thyroid panel Routine Bumex for diuretics Inpatient Spirometry to assess for RAD Continue PT/OT/RT DVT Ppx: Lovenox CM/SW for assist with DC planning: discussed DC plan at length with patient today including further eval with CTA today, repeat ABG, cont with steroid, IV ABX, supplemental O2--> wean when able. Plan for at least another 48 hours for hospital stay as she is requiring high flow oxygen this morning. Code status: 1
[2017-07-12] MEDS ORDERED: Sodium Chloride 0.9% 100 ML IV SCH (09:30)
[2017-07-12] MEDS: Sodium Chloride 0.9% 10 ML Syringe FLUSH PRN (09:48)
--- NOTE | 2017-07-12 10:08 | CR ---
Chest: Portable view of the chest was obtained. Comparison: Previous chest x-ray of 07/11/17. Diffuse increased perihilar markings are seen. Findings are slightly improved from prior exam. No worsening is seen. Heart size and mediastinum are normal. Bony structures are grossly intact. Impression: 1. Slightly improved chest x-ray from prior study of 07/11/17. Diagnostic code #3
--- NOTE | 2017-07-12 10:08 | CR ---
Chest: Frontal view of the chest was obtained. Comparison: Previous chest x-ray of 07/09/17. Increasing density is identified within the right perihilar region and lesser change within the left perihilar region. Heart is slightly enlarged which appears as an interval change. Bony structures are grossly intact. Impression: 1. Increasing perihilar markings on both sides particularly on the right side. Differential includes pulmonary vascular congestion, atelectasis as well as possible superimposed areas of pneumonia if patient has infectious symptoms. Diagnostic code #3 Agree with preliminary report issued by [facility] ([facility] preliminary report dictated on 07/11/17, 10:56 AM Central Time)
--- NOTE | 2017-07-12 10:20 | CT ---
CT chest Technique: Multiple axial sections through the chest were obtained. Intravenous contrast was utilized. Comparison: No prior chest CT, chest x-ray performed earlier on the same day is available. Findings: Pulmonary arteries are fairly well-opacified. No filling defects are seen to indicate pulmonary embolism. Mediastinum and hilar regions show no adenopathy or mass. No pericardial thickening is seen. Small portion of the visualized upper abdominal structures are within normal limits. Patchy areas of increased density are identified throughout both lungs. Areas of atelectasis are seen within the lingula and left lower lung. Bone window settings were reviewed which appear within normal limits for the patient's age. Impression: 1. Patchy areas of increased density throughout both sides of the chest with atelectasis being noted within the lingula and left lower lung. Findings most likely due to diffuse pneumonia and please correlate if this matches clinically. Differential also includes hemorrhage and pulmonary edema. 2. No findings of pulmonary embolism. Diagnostic code #3
[2017-07-12] MEDS ORDERED: Pneumococcal Polyvalent-23 Vaccine 0.5 ML SDV IM ONE (10:30)
[2017-07-12] MEDS ORDERED: guaiFENesin/Dextromethorphan 100-10 MG/5 ML Soln 5 ML Cup PO PRN (10:42)
[2017-07-12] MEDS: Pantoprazole 40 MG Tab.CR PO SCH ×2 (12:19→15:30)
[2017-07-12] MEDS: Levofloxacin/Dextrose 5%-Water 750 MG in Premix Bag 1 BAG IV SCH (17:56)
[2017-07-12] MEDS: Temazepam 15 MG Cap PO PRN (21:23)
[2017-07-13] MEDS: Bumetanide 1 MG Tab PO SCH (06:40)
[2017-07-13] MEDS: Pantoprazole 40 MG Tab.CR PO SCH ×2 (06:40→17:26)
[2017-07-13] MEDS: methylPREDNISolone Sodium Succinate 125 MG/2 ML SDV IVPUSH SCH (06:40)
--- NOTE | 2017-07-13 07:50 | PCM.PN ---
- General Info Date of Service: 07/13/17 Admission Dx/Problem (Free Text): Clinical pneumonia Brigida is seen this morning, sitting up in chair. Looks much better this morning. O2 is weaned to 4L/NC, doing well. She had it off for her shower, did well. She is up and ambulatory in her room this morning. Coughing is much improved. She is coughing up brownish thick phlegm but it is lessening compared to yesterday. VSS, afebrile. CTA done yesterday was without PE, ? pneumonia vs pulmonary edema---strongly suspect both. Resp viral panel is negative. Mycoplasma negative. Functional Status: Reports: Pain Controlled, Tolerating Diet, Ambulating, Urinating, Incentive Spirometry, Other (Flutter valve). Denies: New Symptoms - Review of Systems General: Denies: Fever, Weakness HEENT: Reports: No Symptoms. Denies: Headaches, Sinus Congestion, Sore Throat Pulmonary: Reports: Cough (improving), Wheezing (improving). Denies: Shortness of Breath (much improved and minimal this morning) Cardiovascular: Reports: Dyspnea on Exertion (improving). Denies: Chest Pain, Palpitations Gastrointestinal: Reports: No Symptoms, Other (BM today; increased appetite from steroids) Genitourinary: Reports: No Symptoms Musculoskeletal: Reports: No Symptoms Neurological: Reports: No Symptoms - Patient Data Vitals - Most Recent: Last Vital Signs Temp 97.7 F 07/13/17 04:52 Pulse 63 07/13/17 04:55 Resp 22 H 07/13/17 04:52 BP 112/66 07/13/17 04:52 Pulse Ox 95 07/13/17 04:55 Weight - Most Recent: 274 lb I&O - Last 24 Hours: Intake & Output 07/12/17 07/13/17 07/13/17 22:59 06:59 14:59 Intake Total 1030 950 Output Total 1850 Balance -820 950 Lab Results Last 24 Hours: Laboratory Results - last 24 hr 07/10/17 07/12/17 07/12/17 Range/Units 14:45 05:30 09:26 WBC (3.98-10.04) K/mm3 RBC (3.98-5.22) M/mm3 Hgb (11.2-15.7) gm/L Hct (34.1-44.9) % MCV (79.4-94.8) fl MCH (25.6-32.2) pg MCHC (32.2-35.5) g/dl RDW Std Deviation (36.4-46.3) fL Plt Count (182-369) K/mm3 MPV (9.4-12.3) fl Neut % (Auto) (34.0-71.1) % Lymph % (Auto) (19.3-51.7) % [place] % (Auto) (4.7-12.5) % Eos % (Auto) (0.7-5.8) Baso % (Auto) (0.1-1.2) % Neut # (Auto) (1.56-6.13) K/mm3 Lymph # (Auto) (1.18-3.74) K/mm3 [place] # (Auto) (0.24-0.36) K/mm3 Eos # (Auto) (0.04-0.36) K/mm3 Baso # (Auto) (0.01-0.08) K/mm3 Manual Slide Review Puncture Site Lt radial ABG pH 7.43 (7.35-7.45) ABG pCO2 40.3 (35.0-45.0) mmHg ABG pO2 59.0 L (80.0-100.0) mmHg ABG HCO3 26.0 (22.0-26.0) meq/L ABG O2 Saturation 94.3 L (96.0-97.0) % ABG Base Excess 2.0 (-2-2.0) [place] Test Positive A-a Gradient 172 mmHg O2 Delivery Device Nasal cannula Oxygen Flow Rate 6.0 FiO2 44.00 (21.00-100.00) % Sodium (136-145) mEq/L Potassium (3.5-5.1) mEq/L Chloride (98-107) mEq/L Carbon Dioxide (21-32) mEq/L Anion Gap (5-15) BUN (7-18) mg/dL Creatinine (0.55-1.02) mg/dL Est Cr Clr Drug Dosing mL/min Estimated GFR (MDRD) (>60) mL/min BUN/Creatinine Ratio (14-18) Glucose (74-106) mg/dL Calcium (8.5-10.1) mg/dL C-Reactive Protein (<1.0) mg/dL NT-Pro-B Natriuret Pep 123 (0-125) pg/mL Procalcitonin <0.05 (<0.10) ng/mL 07/13/17 07/13/17 Range/Units 06:20 06:20 WBC 28.07 H (3.98-10.04) K/mm3 RBC 4.57 (3.98-5.22) M/mm3 Hgb 14.3 (11.2-15.7) gm/L Hct 43.6 (34.1-44.9) % MCV 95.4 H (79.4-94.8) fl MCH 31.3 (25.6-32.2) pg MCHC 32.8 (32.2-35.5) g/dl RDW Std Deviation 52.1 H (36.4-46.3) fL Plt Count 327 (182-369) K/mm3 MPV 10.0 (9.4-12.3) fl Neut % (Auto) 84.6 H (34.0-71.1) % Lymph % (Auto) 9.3 L (19.3-51.7) % [place] % (Auto) 5.0 (4.7-12.5) % Eos % (Auto) 0 L (0.7-5.8) Baso % (Auto) 0.1 (0.1-1.2) % Neut # (Auto) 23.76 H (1.56-6.13) K/mm3 Lymph # (Auto) 2.60 (1.18-3.74) K/mm3 [place] # (Auto) 1.41 H (0.24-0.36) K/mm3 Eos # (Auto) 0.00 L (0.04-0.36) K/mm3 Baso # (Auto) 0.03 (0.01-0.08) K/mm3 Manual Slide Review Abnormal smear Puncture Site ABG pH (7.35-7.45) ABG pCO2 (35.0-45.0) mmHg ABG pO2 (80.0-100.0) mmHg ABG HCO3 (22.0-26.0) meq/L ABG O2 Saturation (96.0-97.0) % ABG Base Excess (-2-2.0) [place] Test A-a Gradient mmHg O2 Delivery Device Oxygen Flow Rate FiO2 (21.00-100.00) % Sodium 142 (136-145) mEq/L Potassium 4.1 (3.5-5.1) mEq/L Chloride 106 (98-107) mEq/L Carbon Dioxide 28 (21-32) mEq/L Anion Gap 12.1 (5-15) BUN 24 H (7-18) mg/dL Creatinine 0.7 (0.55-1.02) mg/dL Est Cr Clr Drug Dosing 83.84 mL/min Estimated GFR (MDRD) > 60 (>60) mL/min BUN/Creatinine Ratio 34.3 H (14-18) Glucose 171 H (74-106) mg/dL Calcium 8.8 (8.5-10.1) mg/dL C-Reactive Protein 1.4 H* (<1.0) mg/dL NT-Pro-B Natriuret Pep (0-125) pg/mL Procalcitonin (<0.10) ng/mL Ronnie Results Last 24 Hours: Microbiology 07/12/17 12:10 Respiratory Virus Panel (PCR) (RONNIE) - Final Nasopharyngeal Swab 07/12/17 08:40 Influenza Type A Antigen Screen - Final Nasal, Right NEGATIVE INFLUENZA A VIRUS AG Influenza Type B Antigen Screen - Final NEGATIVE INFLUENZA B VIRUS AG 07/11/17 09:40 Gram Stain - Final Sputum - Expectorated Sputum Culture - Preliminary Med Orders - Current: Current Medications Acetaminophen (Tylenol) 650 mg PO Q4H PRN PRN Reason: Pain (Mild 1-3)/fever Acetaminophen/Butalbital/Caffeine (Fioricet 325-50-40 Mg) 1 tab PO Q6H PRN PRN Reason: Headache Last Admin: 07/11/17 15:13 Dose: 1 tab Hydrocodone Bitart/Acetaminophen (Brandon 325-5 Mg) 1 tab PO Q4H PRN PRN Reason: Pain (moderate 4-6) Albuterol/Ipratropium (Duoneb 3.0-0.5 Mg/3 Ml) 3 ml NEB Q4H PRN PRN Reason: Shortness Of Breath/wheezing Last Admin: 07/12/17 15:23 Dose: 3 ml Bisacodyl (Dulcolax) 5 mg PO DAILY PRN PRN Reason: Constipation Bumetanide (Bumex) 1 mg PO BIDDIURETIC [facility] Last Admin: 07/13/17 06:40 Dose: 1 mg Docusate Sodium (Colace) 100 mg PO BID PRN PRN Reason: Constipation Enoxaparin Sodium (Lovenox) 40 mg SUBCUT BID [facility] Last Admin: 07/12/17 21:23 Dose: 40 mg Guaifenesin (Mucinex) 1,200 mg PO BID [facility] Last Admin: 07/12/17 21:22 Dose: 1,200 mg Guaifenesin/Phenylephrine HCl (Robitussin Dm) 10 ml PO Q4H PRN PRN Reason: Cough Hydralazine HCl (Apresoline) 20 mg IVPUSH Q4H PRN PRN Reason: Hypertension Levofloxacin/Dextrose 750 mg/ (Premix) 150 mls @ 100 mls/hr IV Q24H [facility] Last Admin: 07/12/17 17:56 Dose: 100 mls/hr Promethazine HCl 12.5 mg/ (Sodium Chloride) 50.5 mls @ 100 mls/hr IV Q6H PRN PRN Reason: Nausea/Vomiting Lorazepam (Ativan) 2 mg IVPUSH Q4H PRN PRN Reason: Seizures Lorazepam (Ativan) 1 mg IV Q6H PRN PRN Reason: Anxiety Magnesium Oxide (Magnesium Oxide) 400 mg PO BID [facility] Last Admin: 07/12/17 21:22 Dose: 400 mg Magnesium Sulfate (Pharmacy To Dose - Magnesium Replacement) 0 dose .XX ASDIRECTED PRN PRN Reason: RX TO WATCH MAG LEVELS Methylprednisolone Sodium Succinate (Solu-Medrol) 125 mg IVPUSH Q8H [facility] Last Admin: 07/13/17 06:40 Dose: 125 mg Metoprolol Tartrate (Lopressor) 5 mg IVPUSH Q4H PRN PRN Reason: Tachycardia Ondansetron HCl (Zofran) 4 mg IV Q6H PRN PRN Reason: Nausea/Vomiting Last Admin: 07/10/17 17:42 Dose: 4 mg Pantoprazole Sodium (Protonix) 40 mg PO BIDAC [facility] Last Admin: 07/13/17 06:40 Dose: 40 mg Polyethylene Glycol (Miralax) 17 gm PO DAILY PRN PRN Reason: Constipation Potassium Chloride (Pharmacy To Dose - Potassium Replacement) 0 dose .XX ASDIRECTED PRN PRN Reason: RX TO WATCH K LEVELS Senna/Docusate Sodium (Senna Plus) 1 tab PO BID PRN PRN Reason: Constipation Sodium Chloride (Saline Flush) 10 ml FLUSH ASDIRECTED PRN PRN Reason: Keep Vein Open Last Admin: 07/12/17 09:48 Dose: 10 ml Temazepam (Restoril) 30 mg PO BEDTIME PRN PRN Reason: Sleep Last Admin: 07/12/17 21:23 Dose: 30 mg Discontinued Medications Albuterol (Proventil Neb Soln) 2.5 mg NEB ONETIME ONE Stop: 07/10/17 11:49 Last Admin: 07/10/17 12:04 Dose: 2.5 mg Albuterol/Ipratropium (Duoneb 3.0-0.5 Mg/3 Ml) 3 ml NEB ONETIME ONE Stop: 07/10/17 11:49 Last Admin: 07/10/17 12:04 Dose: 3 ml Albuterol/Ipratropium (Duoneb 3.0-0.5 Mg/3 Ml) 3 ml NEB ONETIME ONE Stop: 07/10/17 12:53 Last Admin: 07/10/17 13:05 Dose: 3 ml Bumetanide (Bumex) 1 mg IVPUSH ONETIME ONE Stop: 07/10/17 22:37 Last Admin: 07/10/17 23:33 Dose: 1 mg Bumetanide (Bumex) 1 mg IVPUSH ONETIME ONE Stop: 07/11/17 06:12 Last Admin: 07/11/17 06:33 Dose: 1 mg Bumetanide (Bumex) 1 mg IVPUSH ONETIME ONE Stop: 07/11/17 18:01 Last Admin: 07/11/17 18:52 Dose: 1 mg Guaifenesin (Mucinex) 1,200 mg PO ONETIME ONE Stop: 07/10/17 13:45 Last Admin: 07/10/17 13:58 Dose: 1,200 mg Guaifenesin (Mucinex) 1,200 mg PO ONETIME ONE Stop: 07/11/17 09:13 Last Admin: 07/11/17 09:40 Dose: 1,200 mg Magnesium Sulfate 2 gm/ Premix 50 mls @ 50 mls/hr IV ONETIME ONE Stop: 07/10/17 13:50 Last Admin: 07/10/17 13:13 Dose: 50 mls/hr Sodium Chloride (Normal Saline) 1,000 mls @ 75 mls/hr IV ASDIRECTED [facility] Last Admin: 07/11/17 02:33 Dose: 75 mls/hr Levofloxacin/Dextrose 750 mg/ (Premix) 150 mls @ 100 mls/hr IV ONETIME ONE Stop: 07/10/17 15:49 Last Admin: 07/10/17 17:12 Dose: 100 mls/hr Sodium Chloride (Normal Saline) 100 mls @ 60 mls/hr IV ASDIRECTED [facility] Stop: 07/12/17 16:00 Last Admin: 07/12/17 09:48 Dose: 60 mls/hr Iopamidol (Isovue-370 (76%)) 50 ml IVPUSH ONETIME ONE Stop: 07/12/17 09:21 Last Admin: 07/12/17 09:48 Dose: 50 ml Iopamidol (Isovue-370 (76%)) 100 ml IVPUSH ONETIME ONE Stop: 07/12/17 09:21 Last Admin: 07/12/17 09:48 Dose: 100 ml Levalbuterol HCl (Xopenex) 1.25 mg NEB ONETIME ONE Stop: 07/10/17 12:54 Last Admin: 07/10/17 13:09 Dose: 1.25 mg Morphine Sulfate (Morphine) 2 mg IVPUSH Q4H PRN PRN Reason: Other Stop: 07/11/17 14:30 Last Admin: 07/11/17 06:22 Dose: 2 mg Morphine Sulfate (Morphine) 1 mg IVPUSH ONETIME ONE Stop: 07/11/17 09:11 Last Admin: 07/11/17 09:52 Dose: 1 mg Pneumococcal Polyvalent Vaccine (Pneumovax 23) 0.5 ml IM .ONCE ONE Stop: 07/12/17 10:31 Prednisone (Prednisone) 20 mg PO ONETIME ONE Stop: 07/10/17 12:52 Last Admin: 07/10/17 13:16 Dose: 20 mg Sodium Chloride (Saline Flush) 10 ml FLUSH ONETIME ONE Stop: 07/12/17 09:21 Last Admin: 07/12/17 11:45 Dose: Not Given - Exam Quality Assessment: Supplemental Oxygen (weaned down to 4L/NC), DVT Prophylaxis General: Alert, Oriented, Cooperative, No Acute Distress HEENT: Pupils Equal, EOMI, Mucous Membr. Moist/[place] Neck: Supple Lungs: Clear to Auscultation, Normal Respiratory Effort, Decreased Breath Sounds (throughout). No: Rhonchi, Wheezing Cardiovascular: Regular Rate, Regular Rhythm, Other (distant heart tones) GI/Abdominal Exam: Normal Bowel Sounds, Soft, Non-Tender (Female) Exam: Deferred Extremities: Normal Inspection, No Pedal Edema Peripheral Pulses: 1+: Dorsalis Pedis (L), Dorsalis Pedis (R) Skin: Warm, Dry, Intact Psy/Mental Status: Alert, Normal Affect, Normal Mood - Problem List & Annotations (1) Acute bronchitis SNOMED Code(s): 77089454 Code(s): J20.9 - ACUTE BRONCHITIS, UNSPECIFIED Status: Acute Priority: High Current Visit: Yes Qualifiers: Bronchitis organism: unspecified organism Qualified Code(s): J20.9 - Acute bronchitis, unspecified (2) Hypoxia SNOMED Code(s): 490597970, 833883828 Code(s): R09.02 - HYPOXEMIA Status: Acute Priority: High Current Visit : Yes (3) Dyspnea on exertion SNOMED Code(s): 22557647 Code(s): R06.09 - OTHER FORMS OF DYSPNEA Status: Acute Priority: High Current Visit: Yes (4) Orthopnea SNOMED Code(s): 04281835 Code(s): R06.01 - ORTHOPNEA Status: Acute Priority: High Current Visit : Yes (5) Tobacco use disorder SNOMED Code(s): 799739848, 069277496 Code(s): F17.200 - NICOTINE DEPENDENCE, UNSPECIFIED, UNCOMPLICATED Status: Chronic Priority: High Current Visit: Yes (6) Obesity SNOMED Code(s): 523777365 Code(s): E66.9 - OBESITY, UNSPECIFIED Status: Chronic Priority: High Current Visit: Yes Qualifiers: Obesity type: with alveolar hypoventilation Obesity classification: adult class 3 (BMI >= 40) Body mass index: BMI 50.0-59.9 - Problem List Review Problem List Initiated/Reviewed/Updated: Yes - My Orders Last 24 Hours: My Active Orders 07/12/17 10:42 Dextromethorphan/guaiFENesin [Robitussin DM] 10 ml PO Q4H PRN 07/12/17 10:45 Pantoprazole [ProTONIX] 40 mg PO BIDAC - Plan Plan:: Assessment/Plan: Acute: Acute Bronchitis/clinical pneumonia w/ Pulmonary Edema---slow improvements - In the setting of Possible Reactive Airway Disease (RAD) and Smoking - CXR 07/09/2017: Increased Precious-hilar markings compatible with Bronchitis; follow up CXR shows pulmonary congestion vs edema on the right side - Failed Outpatient Treatment w/ Prednisone and Doxycycline - Continue IV Steroids, Bronchodilators/SVN/RT tx, IV ATB, Supplemental O2 and Decongestant - Sputum Cx and Mycoplasma Ag both negative - Strep Pneumoniae Ag test-pending - Resp viral panel -- Negative - CTA - No findings of PE; compatible with CXR readings, small early pna vs pulmonary edema findings-- strongly suspect both - Echo obtained as outpatient on 02/08/17- normal EF of 60-65%, no valvular dysfunction, records obtained and reviewed. Dyspnea, persistent FREDERICK--slight improvements - 2/2 Above and Excessive Weight - She likely has Obesity Hypoventilation Syndrome Probable LUZ/OHS- obesity - Will screen here with [facility]: scored 2 = low risk; spoke with her at length, recommend f/up with PCP when feels well for screening overnight study. - Advised to lose weight - Dietary consult for weight management Nicotine Dependence - Smokes 1 ppd x 23 years - Offered Nicotine Patch-refused - Counseled on smoking cessation Leukocytosis--improving - WBC 19.73 --> 29.45-->32--->28 - 2/2 steroid use Chronic: GERD Hx/o Cholelithiasis PCOS Chronic Back Pain Endometriosis Lumbar Disc Herniation at L4-L5 Hidradenitis Suppurative Morbid Obesity with BMI 51 Plan: Slow improvements Routine AM Labs Continue treatment as noted above A1C is 6 with normal thyroid panel Change bumex to spironolactone--discussed PCOS hx, this will help with PCOS symptoms she is experiencing of hair growth, adult acne along with provide some diuretic. Inpatient Spirometry to assess for RAD Continue PT/OT/RT DVT Ppx: Lovenox CM/SW for assist with DC planning--slow improvements, plan for 1-2 more days of treatment prior to DC. Try to wean IV steroid. Code status: 1
[2017-07-13] MEDS ORDERED: Magnesium Sulfate/Water 2 GM in Premix Bag 1 BAG IV SCH (08:00)
[2017-07-13] MEDS: guaiFENesin 600 MG Tab.ER PO SCH ×2 (08:38→20:17)
[2017-07-13] MEDS: Magnesium Oxide 400 MG Tab PO SCH ×2 (08:38→20:17)
[2017-07-13] MEDS: methylPREDNISolone Sodium Succinate 40 MG/1 ML SDV IVPUSH SCH ×2 (08:39→17:26)
[2017-07-13] MEDS: Enoxaparin 40 MG/0.4 ML Syringe SUBCUT SCH ×2 (08:40→10:33)
[2017-07-13] MEDS: Spironolactone 25 MG Tab PO SCH (13:17)
[2017-07-13] MEDS: Albuterol/Ipratropium 3.0-0.5 MG/3 ML Neb Soln NEB PRN (14:46)
[2017-07-13] MEDS: Levofloxacin/Dextrose 5%-Water 750 MG in Premix Bag 1 BAG IV SCH (17:27)
[2017-07-13] MEDS: Temazepam 15 MG Cap PO PRN (20:17)
[2017-07-14] MEDS: methylPREDNISolone Sodium Succinate 40 MG/1 ML SDV IVPUSH SCH ×2 (00:18→09:01)
[2017-07-14] MEDS: Pantoprazole 40 MG Tab.CR PO SCH (06:23)
[2017-07-14] MEDS: Magnesium Oxide 400 MG Tab PO SCH (09:00)
[2017-07-14] MEDS: Spironolactone 25 MG Tab PO SCH (09:00)
[2017-07-14] MEDS: guaiFENesin 600 MG Tab.ER PO SCH (09:00)
[2017-07-14] MEDS: Enoxaparin 40 MG/0.4 ML Syringe SUBCUT SCH (09:00)
[2017-07-14] MEDS: Albuterol/Ipratropium 3.0-0.5 MG/3 ML Neb Soln NEB PRN (11:15)
[2017-07-14 12:15] VITALS: BP 118/66
--- NOTE | 2017-07-14 12:38 | PCM.DCSUM1 ---
Discharge Summary - Hospital Course Free Text/Narrative:: This is a 37 year old female with past medical history of GERD, cholelithiasis, endometriosis, PCOS, chronic back and neck pain, lumbar disc herniation at L4-L5, hydradenitis suppurativa, and morbid obesity with BMI greater than 40 who comes in with complaints of worsening shortness of breath associated with productive, and wheezing. Patient was recently diagnosed with bronchitis this past Wednesday and was put on doxycycline, handheld inhalers and oral steroid. She was evaluated last night in the emergency department for similar symptoms. Her initial chest x-ray showed no obvious infiltrate. Her symptoms have been going on for the past 10 days. She denies any upper respiratory infection. No sinus or headaches. She further denies any signs of systemic infection. No sick contact. Her initial workup in emergency department shows a CBC remarkable for WBC of 19.73, neutrophils of 83.9%, lymphocytes of 11.2%, monocytes of 4.0%, and eosinophils of 0.1%. ABG shows pH of 7.42, PCO2 of 35.8, PO2 of 121.8, bicarbonate of 22.5, O2 sat of 98.3% on 2 L nasal cannula. Her chemistry is remarkable for glucose of 134, CRP of 4.5. Her screening is negative. Patient received initial treatment in the emergency department before she was sent to the floor for further treatment. She was admitted for acute bronchitis. She is full code. Chest x-ray performed on showed increased perihilar markings compatible with bronchitis. Follow-up chest x-ray showed pulmonary congestion versus edema on the right side. She continued to receive steroid treatment, Levaquin, and was started on Bumex. He was later transitioned to spironolactone as patient carries a history of PCOS and it was felt this might improve this as well. She was weaned off of oxygen today. Her saturations remain in the low 90s. She reports she believes this is baseline for her as she had a stress test performed and it was within this range. Sputum culture, mycoplasma antigen, strep pneumonia, respiratory viral panel were all negative. A CTA was performed and showed no signs of PE, however interpretation suggested early pneumonia versus pulmonary edema. This correlates with both the patient's clinical symptoms as well as CXR readings. Echo obtained on showed a normal EF of 60-65% with no valvular this function. She is obese. It was discussed with the patient that her dyspnea may have been related to obesity hypoventilation syndrome or LUZ. Her STOP BANG score was calculated at 82 however it is still strongly recommended the patient follow up with her PCP for a overnight screening study. She was advised to lose weight and stop smoking however she shows no interest in these lysed all changes. Explained to patient that she will likely in the future require home oxygen as her lungs continued to deteriorate. I personally discussed patient outcomes, and risks for lung disease with the patient. She will be discharged home on Levaquin, spironolactone, Medrol Dosepak, and incentive spirometry. She will also have a prescription for nebulized DuoNeb. Patient was advised to follow-up with her PCP within 7-10 days or sooner if needed. She was also advised to be mindful of her breathing. As noted she should follow-up with her PCP for LUZ testing. HPI Initial Comments: I discussed this case with Dr. Marshall, hospitalist. He believes that she is medically cleared to return home. I agree with this and we'll discharge her home. - Discharge Data Discharge Date: 07/14/17 (Admit date: 07/10/17) Discharge Disposition: Home, Self-Care 01 Condition: Good - Discharge Diagnosis/Problem(s) (1) Acute bronchitis SNOMED Code(s): 76354187 ICD Code: J20.9 - ACUTE BRONCHITIS, UNSPECIFIED Status: Acute Priority: High Current Visit: Yes Qualifiers: Bronchitis organism: unspecified organism Qualified Code(s): J20.9 - Acute bronchitis, unspecified (2) Pneumonia SNOMED Code(s): 010268817 ICD Code: J18.9 - PNEUMONIA, UNSPECIFIED ORGANISM Status: Acute Priority : High Current Visit: Yes Qualifiers: Pneumonia type: due to unspecified organism Laterality: left Lung location: lower lobe of lung Qualified Code(s): J18.1 - Lobar pneumonia, unspecified organism (3) Obesity SNOMED Code(s): 251576079 ICD Code: E66.9 - OBESITY, UNSPECIFIED Status: Chronic Priority: High Current Visit: Yes Qualifiers: Obesity type: with alveolar hypoventilation Obesity classification: adult class 3 (BMI >= 40) Body mass index: BMI 50.0-59.9 - Patient Summary/Data Consults: Consultations 07/10/17 14:33 Consult to Case Management [CONS] Routine Consult to Hearing Therapist [CONS] Routine Consult to Chemical Librarian [CONS] Routine Consult to Spiritual Care [CONS] Routine OT Evaluation and Treatment [CONS] Routine PT Evaluation and Treatment [CONS] Routine Respiratory Care Assess and Treatment [CONS] Routine - Patient Instructions Diet: Weight Loss Diet Activity: As Tolerated Driving: Do Not Drive (today ) Showering/Bathing: May Shower Notify Provider of: Fever, Increased Pain, Nausea and/or Vomiting (Increasing shortness of breath. ) - Discharge Plan Prescriptions/Med Rec: Albuterol/Ipratropium [DuoNeb 3.0-0.5 MG/3 ML] 3 ml NEB Q4H PRN #25 neb PRN Reason: Shortness Of Breath guaiFENesin [Mucinex] 1,200 mg PO BID #30 tab.er L Acidophil/B Lactis/B Longum [Florajen3] 460 mg PO DAILY #30 capsule Levofloxacin [Levaquin] 750 mg PO DAILY #7 tablet methylPREDNISolone [Medrol] 4 mg PO ASDIRECTED #1 dosepk Spironolactone [Aldactone] 50 mg PO DAILY #15 tablet Home Medications: Home Meds Pantoprazole Sodium [Protonix] 40 mg PO DAILY 02/04/17 [History] Vitamin C/Biotin [Hair, Skin and Nails Gummies] 1 tab PO DAILY 02/23/17 [History ] Albuterol/Ipratropium [DuoNeb 3.0-0.5 MG/3 ML] 3 ml NEB Q4H PRN #25 neb [Rx] L Acidophil/B Lactis/B Longum [Florajen3] 460 mg PO DAILY #30 capsule 07/14/17 [ Rx] Levofloxacin [Levaquin] 750 mg PO DAILY #7 tablet 07/14/17 [Rx] Spironolactone [Aldactone] 50 mg PO DAILY #15 tablet 07/14/17 [Rx] guaiFENesin [Mucinex] 1,200 mg PO BID #30 tab.er 07/14/17 [Rx] methylPREDNISolone [Medrol] 4 mg PO ASDIRECTED #1 dosepk 07/14/17 [Rx] Patient Handouts: Smoking Cessation, Tips for Success, [id number], Smoking Hazards, Hypoxemia, Shortness of Breath, Acute Bronchitis, [id number], Exercising to Lose Weight, Calorie Counting for Weight Loss, Community-Acquired Pneumonia, Adult, [id number] Forms: ED Department Discharge Referrals: Yakelin Gaitan, [employer] PLATING MACHINE OPERATOR [Primary Care Provider] - 07/21/17 7:45 am - Discharge Summary/Plan Comment DC Time >30 min.: Yes (45 minutes ) - General Info Date of Service: 07/14/17 Admission Dx/Problem (Free Text: Clinical pneumonia Brigida is seen this morning, sitting up in chair. Looks much better this morning. O2 is weaned to 4L/NC, doing well. She had it off for her shower, did well. She is up and ambulatory in her room this morning. Coughing is much improved. She is coughing up brownish thick phlegm but it is lessening compared to yesterday. VSS, afebrile. CTA done yesterday was without PE, ? pneumonia vs pulmonary edema---strongly suspect both. Resp viral panel is negative. Mycoplasma negative. Subjective Update: Follow Up Functional Status: Reports: Pain Controlled, Tolerating Diet, Ambulating, Urinating, Incentive Spirometry - Review of Systems General: Reports: No Symptoms HEENT: Reports: No Symptoms Pulmonary: Reports: Cough (improved), Sputum (improved ). Denies: Shortness of Breath, Wheezing Cardiovascular: Reports: No Symptoms Gastrointestinal: Reports: No Symptoms Genitourinary: Reports: No Symptoms Musculoskeletal: Reports: No Symptoms Skin: Reports: No Symptoms Neurological: Reports: No Symptoms Psychiatric: Reports: No Symptoms Systems Review Comment: Patient reports she would like to go home. She denies any new complaints and reports her rest for symptoms are greatly improving - Patient Data Vitals - Most Recent: Last Vital Signs Temp 97.5 F 07/14/17 11:33 Pulse 77 07/14/17 11:33 Resp 19 07/14/17 11:33 BP 118/66 07/14/17 12:14 Pulse Ox 91 L 07/14/17 11:33 Weight - Most Recent: 274 lb 8 oz I&O - Last 24 hours: Intake & Output 07/13/17 07/14/17 07/14/17 22:59 06:59 14:59 Intake Total 2059 550 240 Balance 2060 550 240 Lab Results - Last 24 hrs: Laboratory Results - last 24 hr 07/14/17 07/14/17 Range/Units 06:41 06:41 WBC 22.07 H (3.98-10.04) K/mm3 RBC 4.52 (3.98-5.22) M/mm3 Hgb 14.5 (11.2-15.7) gm/L Hct 43.2 (34.1-44.9) % MCV 95.6 H (79.4-94.8) fl MCH 32.1 (25.6-32.2) pg MCHC 33.6 (32.2-35.5) g/dl RDW Std Deviation 50.7 H (36.4-46.3) fL Plt Count 311 (182-369) K/mm3 MPV 10.0 (9.4-12.3) fl Neut % (Auto) 78.9 H (34.0-71.1) % Lymph % (Auto) 12.1 L (19.3-51.7) % [place] % (Auto) 7.5 (4.7-12.5) % Eos % (Auto) 0 L (0.7-5.8) Baso % (Auto) 0.1 (0.1-1.2) % Neut # (Auto) 17.41 H (1.56-6.13) K/mm3 Lymph # (Auto) 2.67 (1.18-3.74) K/mm3 [place] # (Auto) 1.65 H (0.24-0.36) K/mm3 Eos # (Auto) 0.00 L (0.04-0.36) K/mm3 Baso # (Auto) 0.03 (0.01-0.08) K/mm3 Manual Slide Review Abnormal smear Sodium 142 (136-145) mEq/L Potassium 4.2 (3.5-5.1) mEq/L Chloride 105 (98-107) mEq/L Carbon Dioxide 31 (21-32) mEq/L Anion Gap 10.2 (5-15) BUN 22 H (7-18) mg/dL Creatinine 0.8 (0.55-1.02) mg/dL Est Cr Clr Drug Dosing 73.36 mL/min Estimated GFR (MDRD) > 60 (>60) mL/min BUN/Creatinine Ratio 27.5 H (14-18) Glucose 208 H (74-106) mg/dL Calcium 8.8 (8.5-10.1) mg/dL C-Reactive Protein 0.5 (<1.0) mg/dL [facility] Results - Last 24 hrs: Microbiology 07/10/17 23:51 Streptococcus pneumoniae Antigen (M - Final Urine 07/11/17 09:40 Gram Stain - Final Sputum - Expectorated Sputum Culture - Final Med Orders - Current: Current Medications Acetaminophen (Tylenol) 650 mg PO Q4H PRN PRN Reason: Pain (Mild 1-3)/fever Acetaminophen/Butalbital/Caffeine (Fioricet 325-50-40 Mg) 1 tab PO Q6H PRN PRN Reason: Headache Last Admin: 07/11/17 15:13 Dose: 1 tab Hydrocodone Bitart/Acetaminophen ([place] 325-5 Mg) 1 tab PO Q4H PRN PRN Reason: Pain (moderate 4-6) Albuterol/Ipratropium (Duoneb 3.0-0.5 Mg/3 Ml) 3 ml NEB Q4H PRN PRN Reason: Shortness Of Breath/wheezing Last Admin: 07/14/17 11:15 Dose: 3 ml Bisacodyl (Dulcolax) 5 mg PO DAILY PRN PRN Reason: Constipation Docusate Sodium (Colace) 100 mg PO BID PRN PRN Reason: Constipation Enoxaparin Sodium (Lovenox) 40 mg SUBCUT DAILY [facility] Last Admin: 07/14/17 09:00 Dose: 40 mg Guaifenesin (Mucinex) 1,200 mg PO BID [facility] Last Admin: 07/14/17 09:00 Dose: 1,200 mg Guaifenesin/Phenylephrine HCl (Robitussin Dm) 10 ml PO Q4H PRN PRN Reason: Cough Hydralazine HCl (Apresoline) 20 mg IVPUSH Q4H PRN PRN Reason: Hypertension Levofloxacin/Dextrose 750 mg/ (Premix) 150 mls @ 100 mls/hr IV Q24H [facility] Last Admin: 07/13/17 17:27 Dose: 100 mls/hr Lorazepam (Ativan) 1 mg IV Q6H PRN PRN Reason: Anxiety Magnesium Oxide (Magnesium Oxide) 400 mg PO BID [facility] Last Admin: 07/14/17 09:00 Dose: 400 mg Magnesium Sulfate (Pharmacy To Dose - Magnesium Replacement) 0 dose .XX ASDIRECTED PRN PRN Reason: RX TO WATCH MAG LEVELS Methylprednisolone Sodium Succinate (Solu-Medrol) 80 mg IVPUSH Q8H [facility] Last Admin: 07/14/17 09:01 Dose: 80 mg Metoprolol Tartrate (Lopressor) 5 mg IVPUSH Q4H PRN PRN Reason: Tachycardia Ondansetron HCl (Zofran) 4 mg IV Q6H PRN PRN Reason: Nausea/Vomiting Last Admin: 07/10/17 17:42 Dose: 4 mg Pantoprazole Sodium (Protonix) 40 mg PO BIDAC [facility] Last Admin: 07/14/17 06:23 Dose: 40 mg Polyethylene Glycol (Miralax) 17 gm PO DAILY PRN PRN Reason: Constipation Potassium Chloride (Pharmacy To Dose - Potassium Replacement) 0 dose .XX ASDIRECTED PRN PRN Reason: RX TO WATCH K LEVELS Senna/Docusate Sodium (Senna Plus) 1 tab PO BID PRN PRN Reason: Constipation Sodium Chloride (Saline Flush) 10 ml FLUSH ASDIRECTED PRN PRN Reason: Keep Vein Open Last Admin: 07/12/17 09:48 Dose: 10 ml Spironolactone (Aldactone) 50 mg PO DAILY [facility] Last Admin: 07/14/17 09:00 Dose: 50 mg Temazepam (Restoril) 30 mg PO BEDTIME PRN PRN Reason: Sleep Last Admin: 07/13/17 20:17 Dose: 30 mg Discontinued Medications Albuterol (Proventil Neb Soln) 2.5 mg NEB ONETIME ONE Stop: 07/10/17 11:49 Last Admin: 07/10/17 12:04 Dose: 2.5 mg Albuterol/Ipratropium (Duoneb 3.0-0.5 Mg/3 Ml) 3 ml NEB ONETIME ONE Stop: 07/10/17 11:49 Last Admin: 07/10/17 12:04 Dose: 3 ml Albuterol/Ipratropium (Duoneb 3.0-0.5 Mg/3 Ml) 3 ml NEB ONETIME ONE Stop: 07/10/17 12:53 Last Admin: 07/10/17 13:05 Dose: 3 ml Bumetanide (Bumex) 1 mg IVPUSH ONETIME ONE Stop: 07/10/17 22:37 Last Admin: 07/10/17 23:33 Dose: 1 mg Bumetanide (Bumex) 1 mg IVPUSH ONETIME ONE Stop: 07/11/17 06:12 Last Admin: 07/11/17 06:33 Dose: 1 mg Bumetanide (Bumex) 1 mg IVPUSH ONETIME ONE Stop: 07/11/17 18:01 Last Admin: 07/11/17 18:52 Dose: 1 mg Bumetanide (Bumex) 1 mg PO BIDDIURETIC [facility] Last Admin: 07/13/17 06:40 Dose: 1 mg Enoxaparin Sodium (Lovenox) 40 mg SUBCUT BID [facility] Last Admin: 07/13/17 08:40 Dose: 40 mg Guaifenesin (Mucinex) 1,200 mg PO ONETIME ONE Stop: 07/10/17 13:45 Last Admin: 07/10/17 13:58 Dose: 1,200 mg Guaifenesin (Mucinex) 1,200 mg PO ONETIME ONE Stop: 07/11/17 09:13 Last Admin: 07/11/17 09:40 Dose: 1,200 mg Magnesium Sulfate 2 gm/ Premix 50 mls @ 50 mls/hr IV ONETIME ONE Stop: 07/10/17 13:50 Last Admin: 07/10/17 13:13 Dose: 50 mls/hr Sodium Chloride (Normal Saline) 1,000 mls @ 75 [facility] Admin: 07/11/17 02:33 Dose: 75 mls/hr Levofloxacin/Dextrose 750 mg/ (Premix) 150 mls @ 100 mls/hr IV ONETIME ONE Stop: 07/10/17 15:49 Last Admin: 07/10/17 17:12 Dose: 100 mls/hr Promethazine HCl 12.5 mg/ (Sodium Chloride) 50.5 mls @ 100 mls/hr IV Q6H PRN PRN Reason: Nausea/Vomiting Sodium Chloride (Normal Saline) 100 mls @ 60 mls/hr IV ASDIRECTED [facility] Stop: 07/12/17 16:00 Last Admin: 07/12/17 09:48 Dose: 60 mls/hr Magnesium Sulfate 2 gm/ Premix 50 mls @ 25 mls/hr IV Q2H [facility] Stop: 07/13/17 11:59 Last Admin: 07/13/17 08:40 Dose: Not Given Iopamidol (Isovue-370 (76%)) 50 ml IVPUSH ONETIME ONE Stop: 07/12/17 09:21 Last Admin: 07/12/17 09:48 Dose: 50 ml Iopamidol (Isovue-370 (76%)) 100 ml IVPUSH ONETIME ONE Stop: 07/12/17 09:21 Last Admin: 07/12/17 09:48 Dose: 100 ml Levalbuterol HCl (Xopenex) 1.25 mg NEB ONETIME ONE Stop: 07/10/17 12:54 Last Admin: 07/10/17 13:09 Dose: 1.25 mg Lorazepam (Ativan) 2 mg IVPUSH Q4H PRN PRN Reason: Seizures Methylprednisolone Sodium Succinate (Solu-Medrol) 125 mg IVPUSH Q8H [facility] Last Admin: 07/13/17 06:40 Dose: 125 mg Morphine Sulfate (Morphine) 2 mg IVPUSH Q4H PRN PRN Reason: Other Stop: 07/11/17 14:30 Last Admin: 07/11/17 06:22 Dose: 2 mg Morphine Sulfate (Morphine) 1 mg IVPUSH ONETIME ONE Stop: 07/11/17 09:11 Last Admin: 07/11/17 09:52 Dose: 1 mg Pneumococcal Polyvalent Vaccine (Pneumovax 23) 0.5 ml IM .ONCE ONE Stop: 07/12/17 10:31 Prednisone (Prednisone) 20 mg PO ONETIME ONE Stop: 07/10/17 12:52 Last Admin: 07/10/17 13:16 Dose: 20 mg Sodium Chloride (Saline Flush) 10 ml FLUSH ONETIME ONE Stop: 07/12/17 09:21 Last Admin: 07/12/17 11:45 Dose: Not Given - Exam Quality Assessment: Reports: DVT Prophylaxis General: Reports: Alert, Oriented HEENT: Reports: Pupils Equal, Pupils Reactive, Mucous Membr. Moist/[place] Neck: Reports: Supple, Trachea Midline, No JVD Lungs: Reports: Clear to Auscultation, Normal Respiratory Effort, Decreased Breath Sounds. Denies: Rhonchi, Wheezing Cardiovascular: Reports: Regular Rate, Regular Rhythm GI/Abdominal Exam: Normal Bowel Sounds, Soft, Non-Tender, No Distention (Female) Exam: Deferred Rectal (Female) Exam: Deferred Back Exam: Reports: Normal Inspection Extremities: Normal Inspection, Normal Range of Motion, Non-Tender, Normal Capillary Refill, Pedal Edema (mild) Skin: Reports: Warm, Dry, Intact Neurological: Reports: No New Focal Deficit Psy/Mental Status: Reports: Alert, Normal Affect, Normal Mood Physical Findings Comments:: Patient was examined while sitting in chair as she was about to have lunch. Lunch was brought in from outside fast food restaurant. Patient is on continuous pulse ox with readings in the low 90s. When moving or talking she decreases her saturations to 87-89. *Q Meaningful Use (DIS) - VTE *Q VTE Criteria *Q: - Stroke *Q Stroke Criteria *Q: - AMI *Q AMI Criteria *Q:
[2017-07-14] MEDS ORDERED: Diphtheria,Pertussis(Acell),Tetanus Vaccine 0.5 ML SDV IM ONE (13:12)
== END 2017-07-14 14:55 | disposition home or self-care (01) | DRG 189 ==
LOC: JD.ED 11:35 → JD.MS 14:00
PROVIDERS: ADMIT Internal Medicine; ATTEND Internal Medicine
DX: J81.1 Chronic pulmonary edema (principal); J18.9 Pneumonia, unspecified organism; Z68.43 Body mass index [BMI] 50.0-59.9, adult; R06.00 Dyspnea, unspecified; K21.9 Gastro-esophageal reflux disease without esophagitis; E66.9 Obesity, unspecified; Z68.30 Body mass index [BMI] 30.0-30.9, adult; G89.29 Other chronic pain; M54.9 Dorsalgia, unspecified; F17.210 Nicotine dependence, cigarettes, uncomplicated; Z79.899 Other long term (current) drug therapy; Z88.0 Allergy status to penicillin; Z88.8 Allergy status to other drugs, medicaments and biological substances; M54.2 Cervicalgia; E66.01 Morbid (severe) obesity due to excess calories; R09.02 Hypoxemia; R06.01 Orthopnea; K80.20 Calculus of gallbladder without cholecystitis without obstruction; N80.9 Endometriosis, unspecified; M51.26 Other intervertebral disc displacement, lumbar region; E28.2 Polycystic ovarian syndrome; G47.33 Obstructive sleep apnea (adult) (pediatric); F45.8 Other somatoform disorders
CPT/HCPCS: 94640 ×4; 96365; 99285; A9270 ×2; J7050; 36415; 36600; 71010; 71010-26; 71275; 71275-26; 80048; 80053; 82803; 83036; 83735; 83880; 84145; 84439; 84443; 84484; 84702; 84703; 85025; 85379; 86140; 86738; 87070; 87205; 87486; 87581; 87633; 87798; 87804; 87899; 90715; 90732; 94667; 94762; 96361; 97161-GP; 97165-GO; G0009; J1650; J1956; J2270; J2405; J2920; J2930; J3475; J7030; J7040; Q9967

== ENCOUNTER 2018-04-05 22:37 | Emergency (ER) | payer MEDICAID ==
--- NOTE | 2018-04-05 23:32 | EDM.PDOC ---
ED HPI GENERAL MEDICAL PROBLEM - General Chief Complaint: Lower Extremity Injury/Pain Stated Complaint: poss toe injury Time Seen by Provider: 04/05/18 23:07 Source of Information: Reports: Patient History Limitations: Reports: No Limitations - History of Present Illness INITIAL COMMENTS - FREE TEXT/NARRATIVE: The patient presents with left great toe pain. She had a manicure today and they tried to remove some of the nail but it did hurt when they did it. She has pain, redness and swelling. She is worried it is infected. Onset: Sudden Duration: Hour(s): Location: Reports: Lower Extremity, Left (great toe) Quality: Reports: Sharp Severity: Moderate Improves with: Reports: None Worsens with: Reports: None Associated Symptoms: Reports: No Other Symptoms left great toe Pain Score (Numeric/FACES): 10 - Related Data Allergies Allergy/AdvReac Type Severity Reaction Status Date / Time cocaine Allergy Cannot Verified 04/05/18 22:48 Remember Penicillins Allergy Hives Verified 04/05/18 22:48 succinylcholine Allergy Cardiac Verified 04/05/18 22:48 Arrest Home Meds: Home Meds Pantoprazole Sodium [Protonix] 40 mg PO DAILY 02/04/17 [History] Cephalexin [Keflex] 500 mg PO Q6HR #40 capsule 04/05/18 [Rx] Hydrocodone/Acetaminophen [Hydrocodon-Acetaminophen 5-325] 1 - 2 each PO Q6HR PRN #20 tablet 04/05/18 [Rx] Past Medical History HEENT History: Reports: None Cardiovascular History: Reports: None, Other (See Below) Other Cardiovascular History: exertional chest pain Respiratory History: Reports: None, SOB Gastrointestinal History: Reports: GERD, Other (See Below) Other Gastrointestinal History: gallstones, reflux, nausea, diarrhea, RUQ and LUQ abdominal pain Genitourinary History: Reports: None SERVICE PERSON History: Reports: Endometriosis, Polycystic Ovaries, Other (See Below) Other OB/BYN History: amenorrhea Musculoskeletal History: Reports: Back Pain, Chronic, Other (See Below) Other Musculoskeletal History: neck apin, lumar disc herniation at L4-L5 Neurological History: Reports: None Psychiatric History: Reports: None Endocrine/Metabolic History: Reports: Obesity/BMI 30+ Hematologic History: Reports: None Immunologic History: Reports: None Oncologic (Cancer) History: Reports: None Other Dermatologic History: acne vulgaris, hidrodenitis, infected skin lesion - Past Surgical History Head Surgeries/Procedures: Reports: None HEENT Surgical History: Reports: Tonsillectomy, Other (See Below) Respiratory Surgical History: Reports: None Female Surgical History: Reports: None, Other (See Below) Endocrine Surgical History: Reports: None Neurological Surgical History: Reports: Lumbar Spine Musculoskeletal Surgical History: Reports: Other (See Below) Oncologic Surgical History: Reports: None Dermatological Surgical History: Reports: None Social & Family History - Family History Family Medical History: Noncontributory Cardiac: Reports: Hypertension Respiratory: Reports: Asthma, Sleep Apnea GI: Reports: None Endocrine/Metabolic: Reports: Diabetes, type II - Tobacco Use Smoking Status *Q: Current Every Day Smoker Years of Tobacco use: 23 Packs/Tins Daily: 1.5 - Caffeine Use Caffeine Use: Reports: Coffee, Soda Other Caffeine Use: 76 oz of caffiene on average per day. - Recreational Drug Use Recreational Drug Use: No Review of Systems - Review of Systems Review Of Systems: See Below Constitutional: Reports: No Symptoms Eyes: Reports: No Symptoms Ears: Reports: No Symptoms Nose: Reports: No Symptoms Mouth/Throat: Reports: No Symptoms Respiratory: Reports: No Symptoms Cardiovascular: Reports: No Symptoms GI/Abdominal: Reports: No Symptoms Genitourinary: Reports: No Symptoms Musculoskeletal: Reports: Other (Pain and erythema with edema to the left great toe) ED EXAM, GENERAL - Physical Exam Exam: See Below Exam Limited By: No Limitations General Appearance: Alert, No Apparent Distress Ears: Normal External Exam Nose: Normal Inspection Head: Atraumatic, Normocephalic Neck: Normal Inspection Respiratory/Chest: No Respiratory Distress Extremities: Other (Left great toe has edema, erythema and pain upon palpation) Course - Vital Signs Last Recorded V/S: Last Vital Signs Temp 97.5 F 04/05/18 22:45 Pulse 89 04/05/18 22:45 Resp 18 04/05/18 22:45 BP 164/94 H 04/05/18 22:45 Pulse Ox 99 04/05/18 22:45 - Re-Assessments/Exams Free Text/Narrative Re-Assessment/Exam: 04/05/18 23:35 I will get her on some keflex. I will give her a dose here and something for pain. Departure - Departure Time of Disposition: 23:35 Disposition: Home, Self-Care 01 Condition: Good Clinical Impression: Toe infection - Discharge Information Prescriptions: Cephalexin [Keflex] 500 mg PO Q6HR #40 capsule Hydrocodone/Acetaminophen [Hydrocodon-Acetaminophen 5-325] 1 - 2 each PO Q6HR PRN #20 tablet PRN Reason: Pain Referrals: Yakelin Gaitan, PERIOPERATIVE ASSISTANT [Primary Care Provider] - Inocencio France II, DPM [Physician] - 1 Week Forms: ED Department Discharge Additional Instructions: Take the keflex 4 times per day for 10 days. Take the hydrocodone as needed for pain. Soak you toe in warm soapy water 2 times per day and apply antibiotic ointment after. Follow up with Dr France if this is not getting better.
[2018-04-05] MEDS ORDERED: Acetaminophen/HYDROcodone 325-5 MG Tab PO ONE (23:36)
[2018-04-05] MEDS ORDERED: Cephalexin 500 MG Cap PO ONE (23:37)
[2018-04-05 23:51] VITALS: BP 159/92
== END 2018-04-05 23:49 | disposition home or self-care (01) ==
LOC: JD.ED 22:37
DX: L08.9 Local infection of the skin and subcutaneous tissue, unspecified (principal); F17.210 Nicotine dependence, cigarettes, uncomplicated; Z88.5 Allergy status to narcotic agent; Z88.0 Allergy status to penicillin; Z88.8 Allergy status to other drugs, medicaments and biological substances
CPT/HCPCS: 99283; A9270

== ENCOUNTER 2019-03-06 21:15 | Emergency (ER) | payer MEDICAID, SELFPAY ==
[2019-03-06 21:46] VITALS: BP 141/93
[2019-03-06] MEDS ORDERED: EPINEPHrine/Lidocaine/Tetracai 3 ML ML TOP ONE (22:08)
[2019-03-06] MEDS ORDERED: Lidocaine 1% with EPINEPHrine 1:100,000 20 ML MDV INJECT ONE (22:08)
--- NOTE | 2019-03-06 23:00 | EDM.PDOC ---
ED HPI GENERAL MEDICAL PROBLEM - General Chief Complaint: Skin Complaint Stated Complaint: ABCESS ON LEFT SIDE BELOW ARMPIT Time Seen by Provider: 03/06/19 21:42 Source of Information: Reports: Patient History Limitations: Reports: No Limitations - History of Present Illness INITIAL COMMENTS - FREE TEXT/NARRATIVE: The patient presents with an abscess to the left axilla. She first noticed this on and she has been going warm compresses and tried to open it up but nothing would come out but blood. She has a history of abscesses in multiple spots including this area and she had Dr Ramirez open it up a few years ago. She denies fever or chills. Onset: Gradual Duration: Day(s): (4) Location: Reports: Upper Extremity, Left (axilla) Quality: Reports: Sharp Severity: Moderate Improves with: Reports: None Worsens with: Reports: None Associated Symptoms: Reports: No Other Symptoms Right Lower Axillary Pain Score (Numeric/FACES): 5 - Related Data Allergies Allergy/AdvReac Type Severity Reaction Status Date / Time cocaine Allergy Cannot Verified 03/06/19 21:39 Remember Penicillins Allergy Hives Verified 03/06/19 21:39 succinylcholine Allergy Cardiac Verified 03/06/19 21:39 Arrest Home Meds: Home Meds Pantoprazole Sodium [Protonix] 40 mg PO DAILY 02/04/17 [History] Cyclobenzaprine [Flexeril] 10 - 20 mg PO TID PRN 03/06/19 [History] Magnesium 250 mg PO DAILY 03/06/19 [History] Past Medical History HEENT History: Reports: None Cardiovascular History: Reports: None, Other (See Below) Other Cardiovascular History: exertional chest pain Respiratory History: Reports: None, SOB Gastrointestinal History: Reports: GERD, Other (See Below) Other Gastrointestinal History: gallstones, reflux, nausea, diarrhea, RUQ and LUQ abdominal pain Genitourinary History: Reports: None 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: Endometriosis, Polycystic Ovaries, Other (See Below) Other 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 History: amenorrhea Musculoskeletal History: Reports: Back Pain, Chronic, Other (See Below) Other Musculoskeletal History: neck apin, lumar disc herniation at L4-L5 Neurological History: Reports: None Psychiatric History: Reports: None Endocrine/Metabolic History: Reports: Obesity/BMI 30+ Hematologic History: Reports: None Immunologic History: Reports: None Oncologic (Cancer) History: Reports: None Other Dermatologic History: acne vulgaris, hidrodenitis, infected skin lesion - Past Surgical History Head Surgeries/Procedures: Reports: None HEENT Surgical History: Reports: Tonsillectomy, Other (See Below) Respiratory Surgical History: Reports: None Female Surgical History: Reports: None, Other (See Below) Endocrine Surgical History: Reports: None Neurological Surgical History: Reports: Lumbar Spine Musculoskeletal Surgical History: Reports: Other (See Below) Oncologic Surgical History: Reports: None Dermatological Surgical History: Reports: None Social & Family History - Family History Family Medical History: Noncontributory Cardiac: Reports: Hypertension Respiratory: Reports: Asthma, Sleep Apnea GI: Reports: None Endocrine/Metabolic: Reports: Diabetes, type II - Tobacco Use Smoking Status *Q: Current Every Day Smoker Years of Tobacco use: 24 Packs/Tins Daily: 2 - Caffeine Use Caffeine Use: Reports: Coffee, Soda Other Caffeine Use: 76 oz of caffiene on average per day. - Recreational Drug Use Recreational Drug Use: Yes Recreational Drug Type: Reports: Other (see below) Other Recreational Drug Type: takes edibles for back pain ED ROS GENERAL - Review of Systems Review Of Systems: See Below Constitutional: Reports: No Symptoms HEENT: Reports: No Symptoms Respiratory: Reports: No Symptoms Cardiovascular: Reports: No Symptoms Endocrine: Reports: No Symptoms GI/Abdominal: Reports: No Symptoms : Reports: No Symptoms Musculoskeletal: Reports: Other (abscess to the left axilla) ED EXAM, SKIN/RASH Exam: See Below Exam Limited By: No Limitations General Appearance: Alert, No Apparent Distress Ears: Normal External Exam Nose: Normal Inspection Head: Atraumatic, Normocephalic Neck: Normal Inspection Respiratory/Chest: No Respiratory Distress Extremities: Other (Erythema and an area of fluctuance to the left axila.) ED SKIN PROCEDURES - I&D Site: Left axilla Skin Prep: Chlorhexidine (Hibiciens) Local Anesthesia: Lidocaine: 1% with EPI (and LET) Local Anesthetic Volume: 1cc Area Incised With: 11 Blade Drainage: Bloody, Moderate Amount Probed to Break Up Loculations: Yes Packed With: 1/4 in. Iodoform Complications: No Course - Vital Signs Last Recorded V/S: Last Vital Signs Temp 96.9 F 03/06/19 21:41 Pulse 93 03/06/19 21:41 Resp 20 03/06/19 21:41 BP 141/93 H 03/06/19 21:41 Pulse Ox 98 03/06/19 21:41 - Orders/Labs/Meds Meds: Medications Discontinued Medications Generic Name Dose Route Start Last Admin Trade Name Aaron PRN Reason Stop Dose Admin Lidocaine/Epinephrine 20 ml 03/06/19 22:08 Xylocaine 1% With Epinephrine 1:100,000 INJECT 03/06/19 22:09 ONETIME ONE Lidocaine/Tetracaine 3 ml 03/06/19 22:08 03/06/19 22:26 Let Soln TOP 03/06/19 22:09 3 ml ONETIME ONE Administration - Re-Assessments/Exams Free Text/Narrative Re-Assessment/Exam: 03/06/19 22:59 I did an I&D of the abscess with bloody drainage. I did obtain cultures. I will get her on doxycycline and give her something for pain. I will have her follow up with Dr Carrillo in 1 week. Departure - Departure Time of Disposition: 23:00 Disposition: Home, Self-Care 01 Condition: Good Clinical Impression: Abscess - Discharge Information *PRESCRIPTION DRUG MONITORING PROGRAM REVIEWED*: Not Applicable *COPY OF PRESCRIPTION DRUG MONITORING REPORT IN PATIENT FRANCHESCA: Not Applicable Referrals: Danita Grajeda MD [Primary Care Provider] - Calista Simmons MD [Physician] - 1 Week Additional Instructions: Put warm compresses on the wound 2 times per day for 5 days. Take the doxycycline 1 pill 2 times per day for 10 days. Take the hydrocodone as needed for pain. Please return if you are worse.
== END 2019-03-06 23:12 | disposition home or self-care (01) ==
LOC: JD.ED 21:15
DX: L02.412 Cutaneous abscess of left axilla (principal); F17.210 Nicotine dependence, cigarettes, uncomplicated; K21.9 Gastro-esophageal reflux disease without esophagitis; Z79.899 Other long term (current) drug therapy; Z88.0 Allergy status to penicillin; Z88.8 Allergy status to other drugs, medicaments and biological substances
CPT/HCPCS: 10060; 87075; 87077; 87186; 87205; 99283; 99283-25

== ENCOUNTER 2020-05-12 16:21 | Emergency (ER) | payer MEDICAID ==
[2020-05-12] MEDS ORDERED: Orphenadrine 100 MG Tab.ER PO ONE (16:58)
[2020-05-12] MEDS ORDERED: Ketorolac 30 MG/ML SDV IM ONE (16:58)
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
[2020-05-12 17:43] VITALS: BP 136/91; PULSE 94
== END 2020-05-12 17:36 | disposition home or self-care (01) ==
LOC: JD.ED 16:21
DX: S30.0XXA Contusion of lower back and pelvis, initial encounter (principal); K21.9 Gastro-esophageal reflux disease without esophagitis; E66.9 Obesity, unspecified; F17.210 Nicotine dependence, cigarettes, uncomplicated; Z88.0 Allergy status to penicillin; Z88.8 Allergy status to other drugs, medicaments and biological substances; Z79.899 Other long term (current) drug therapy; Z88.4 Allergy status to anesthetic agent; W10.8XXA Fall (on) (from) other stairs and steps, initial encounter; Y93.01 Activity, walking, marching and hiking
CPT/HCPCS: 96372; 99283; A9270; J1885